=== PATIENT | female | born 1960 | race African-American/Black ===

== ENCOUNTER 2016-08-22 11:30 | Inpatient (IN) | payer OTHER ==
[2016-08-22 13:03] VITALS: BMI 32.5
--- NOTE | 2016-08-22 15:43 | HP ---
CIWA Score - CIWA Score Nausea/Vomitin-No Nausea/No Vomiting Muscle Tremors: 4-Moderate,w/Arms Extend Anxiety: 4-Mod. Anxious/Guarded Agitation: 4-Moderately Restless Paroxysmal Sweats: 1-Minimal Palms Moist Orientation: 0-Oriented Tacttile Disturbances: 3-Moderate Itch/Numb/Burn Auditory Disturbances: 0-None Visual Disturbances: 0-None Headache: 2-Mild CIWA-Ar Total Score: 18 Admission ROS BHS - HPI Chief Complaint: DETOX TX FOR ALCOHOL DEPENDENCE Allergies/Adverse Reactions: Allergies Allergy/AdvReac Type Severity Reaction Status Date / Time diphenhydramine AdvReac Severe Itching Verified 08/22/16 14:38 diphenhydramine HCl AdvReac Severe Itching Verified 08/22/16 14:38 [[facility] History of Present Illness: 55 Y/O AA/FEMALE WITH A HX OF ALCOHOL, COCAINE AND VALIUM/KLONOPIN DEPENDENCE SEEKING DETOX TX Exam Limitations: No Limitations - Ebola screening Have you traveled outside of the country in the last 21 days: No Have you had contact with anyone from an Ebola affected area: No Have you been sick,other than usual withdrawal symptoms: No Do you have a fever: No - Review of Systems Constitutional: Chills, Night Sweats, Changes in sleep EENT: reports: Blurred Vision (WEARS GLASSES), Eye Pain (DRY EYES), Tearing ( DRY EYES), Nose Congestion, Dental Problems (MISSING TEETH) Respiratory: reports: Shortness of Breath (HX BRONCHITIS--ON ALBUTEROL), Wheezing Cardiac: reports: Lightheadedness GI: reports: Constipated, Nausea, Vomiting, Abdominal cramping : reports: No Symptoms Reported Musculoskeletal: reports: Back Pain, Muscle Pain Integumentary: reports: Dryness Neuro: reports: Headache, Numbness, Tingling, Tremors, Unsteady Gait, Dizziness Endocrine: reports: No Symptoms Reported Hematology: reports: Anemia Psychiatric: reports: Orientated x3, Anxious Other Systems: Reviewed and Negative Patient History - Patient Medical History Hx Anemia: No Hx Asthma: Yes (Pt is on MDI) Hx Chronic Obstructive Pulmonary Disease (COPD): No Hx Cancer: No Hx Cardiac Disorders: No Hx Congestive Heart Failure: No Hx Hypertension: No Hx Hypercholesterolemia: No Hx Pacemaker: No HX Cerebrovascular Accident: No Hx Seizures: Yes (IN THE PAST, LAST WAS 3 YRS AGO ) Hx Dementia: No Hx Diabetes: No Hx Gastrointestinal Disorders: Yes (GERD) Hx Liver Disease: No Hx Genitourinary Disorders: No Hx Sexually Transmitted Disorders: No Hx Renal Disease (ESRD): No Hx Thyroid Disease: No Hx Human Immunodeficiency Virus (HIV): No (NEGATVE last 04/25) Hx Hepatitis C: Yes (20 years ago; TREATMENT PENDING.) Hx Depression: Yes (ON MEDS) Hx Suicide Attempt: No Hx Bipolar Disorder: Yes (SEROQUEL AND ABILIFY nn compliance) Hx Schizophrenia: No - Patient Surgical History Past Surgical History: Yes Hx Neurologic Surgery: No Hx Cataract Extraction: No Hx Cardiac Surgery: No Hx Lung Surgery: No Hx Breast Surgery: No Hx Breast Biopsy: No Hx Abdominal Surgery: No Hx Appendectomy: No Hx Cholecystectomy: No Hx Genitourinary Surgery: No Hx Section: No Hx Orthopedic Surgery: No Hx Hysterectomy: No Other Surgical History: UMBILICAL HERNIA REPAIR at childhood Anesthesia Reaction: No - PPD History Previous Implant?: Yes Documented Results: Negative w/o proof Implanted On Prior [facility] Admission?: Yes Date: 08/25/15 Results: 0 mm PPD to be Administered?: Yes - Reproductive History Patient is a Female of Child Bearing Age (11 -55 yrs old): Yes Last Menstrual Period: 06/22/16 Patient : No - Smoking Cessation Smoking history: Current some day smoker Have you smoked in the past 12 months: Yes Aproximately how many cigarettes per day: 30 (NOT CURRENTLY;USES PATCH) Cigars Per Day: 2 (NOT CURRENTLY;USES PATCH) Hx Chewing Tobacco Use: No Initiated information on smoking cessation: Yes 'Breaking Loose' booklet given: 08/22/16 - Substance & Tx. History Hx Alcohol Use: Yes (VODKA/BEER) Hx Substance Use: Yes (COCAINE) Substance Use Type: Alcohol, Cocaine Hx Substance Use Treatment: Yes (DETOX) - Substances Abused Alcohol Route: Oral Frequency: Daily Amount used: 1 PINT VODKA Age of first use: 15 Date of Last Use: 08/21/16 Cocaine Route: Inhalation Frequency: Daily Amount used: $50-60 Age of first use: 22 Date of Last Use: 08/20/16 Family Disease History - Family Disease History Family Disease History: Heart Disease: Father (ALCOHOL), Other: Father, Brother (ALCOHOL/DRUG), Sister (ALCOHOL/DRUG) Admission Physical Exam [facility] - Vital Signs Vital Signs: Vital Signs - 24 hr 08/22/16 12:58 Temperature 97 F L Pulse Rate 65 Respiratory 20 Rate Blood Pressure 149/95 - Physical General Appearance: Yes: Moderate Distress, Irritable, Anxious HEENTM: Yes: EOMI, Normocephalic, ALLAN, Pharynx Normal Respiratory: Yes: Chest Non-Tender, Lungs Clear, Normal Breath Sounds, No Respiratory Distress Neck: Yes: Supple, Trachea in good position Breast: Yes: Breast Exam Deferred Cardiology: Yes: Regular Rhythm, Regular Rate, S1, S2 Abdominal: Yes: Normal Bowel Sounds, Non Tender, Soft Genitourinary: Yes: Other (N/C) Back: Yes: Within Normal Limits Musculoskeletal: Yes: full range of Motion, Gait Steady Extremities: Yes: Normal Range of Motion, Non-Tender Neurological: Yes: devops architect II-XII NML intact, Fully Oriented, Alert Integumentary: Yes: Dry, Warm Lymphatic: Yes: Within Normal Limits - Diagnostic (1) Alcohol dependence with uncomplicated withdrawal Current Visit: Yes Status: Acute (2) Alcohol related seizure Current Visit: Yes Status: Suspected (3) Asthma Current Visit: Yes Status: Chronic Qualifiers: Asthma severity: mild intermittent Asthma complication type: uncomplicated Qualified Code(s): J45.20 - Mild intermittent asthma, uncomplicated (4) Constipation Current Visit: Yes Status: Chronic Qualifiers: Constipation type: unspecified constipation type Qualified Code(s): K59.00 - Constipation, unspecified (5) GERD (gastroesophageal reflux disease) Current Visit: Yes Status: Chronic Qualifiers: Esophagitis presence: without esophagitis Qualified Code(s): K21.9 - Gastro-esophageal reflux disease without esophagitis (6) Hepatitis C carrier Current Visit: Yes Status: Chronic Cleared for Admission S - Detox or Rehab [facility] Level of Care: Medically Managed Detox Regimen/Protocol: Librium [facility] Breath Alcohol Content Breath Alcohol Content: 0 Urine Pregancy Test - Result Urine Test Results: Negative- NO Line Present Urine Drug Screen - Results Drug Screen Negative: No Urine Drug Screen Results: MARY-Cocaine
[2016-08-22] MEDS ORDERED: ALBUTEROL SO4 6.7 GM HFA INHALER IH PRN (15:44)
[2016-08-22] MEDS ORDERED: MAGNESIUM HYDROX 2400MG/30ML ORAL SUSPENSION 30 ML CUP PO PRN (16:07)
[2016-08-22] MEDS ORDERED: chlordiazePOXIDE HCL 25 MG CAPSULE PO PRN (16:07)
[2016-08-22] MEDS ORDERED: MAGNESIUM CITRATE 300 ML BOTTLE PO PRN (16:07)
[2016-08-22] MEDS ORDERED: NICOTINE POLACRILEX 2 MG GUM BC PRN (16:07)
[2016-08-22] MEDS ORDERED: LOPERAMIDE HCL 2 MG CAPSULE PO PRN (16:07)
[2016-08-22] MEDS ORDERED: chlordiazePOXIDE HCL 25 MG CAPSULE PO ONE (17:30)
[2016-08-22] MEDS: chlordiazePOXIDE HCL 25 MG CAPSULE PO SCH ×2 (17:48→22:28)
[2016-08-22 22:11] LABS: URINE APPEARANCE CLEAR; URINE BILIRUBIN NEGATIVE (NEGATIVE); URINE BLOOD NEGATIVE (NEGATIVE); URINE COLOR LT. YELLOW; URINE GLUCOSE (UA) NEGATIVE (NEGATIVE); URINE KETONE NEGATIVE (NEGATIVE); URINE LEUK ESTERASE NEGATIVE (NEGATIVE); URINE NITRITE NEGATIVE (NEGATIVE); URINE PROTEIN NEGATIVE (NEGATIVE); URINE UROBILINOGEN 0.2 E.U/dl E.U./dl (0.2-1.0)
[2016-08-22] MEDS: THIAMINE HCL 100 MG TABLET (FP) PO SCH (22:28)
[2016-08-22] MEDS: ACETAMINOPHEN 325 MG TABLET (FP) PO PRN (22:51)
[2016-08-22] MEDS: MAG HYDROX/AL HYDROX/SIMETH 30 ML UNIT-DOSE CUP PO PRN (22:51)
[2016-08-22] MEDS: P-EPHED 60MG/TRIPROLIDI 2.5MG TABLET PO PRN (22:51)
[2016-08-22] MEDS: NICOTINE 14 MG/24 HOURS TOPICAL PATCH TD SCH (22:54)
[2016-08-23] MEDS: chlordiazePOXIDE HCL 25 MG CAPSULE PO SCH ×4 (05:45→22:44)
[2016-08-23] MEDS: MAG HYDROX/AL HYDROX/SIMETH 30 ML UNIT-DOSE CUP PO PRN (05:46)
[2016-08-23] MEDS: ACETAMINOPHEN 325 MG TABLET (FP) PO PRN ×2 (05:46→12:38)
[2016-08-23] MEDS: P-EPHED 60MG/TRIPROLIDI 2.5MG TABLET PO PRN ×2 (08:53→22:46)
[2016-08-23] MEDS: IBUPROFEN 400 MG TABLET (FP) PO PRN (08:54)
--- NOTE | 2016-08-23 10:05 | PN ---
S CIWA - CIWA Score Nausea/Vomitin-Mild Nausea/No Vomiting Muscle Tremors: 4-Moderate,w/Arms Extend Anxiety: 4-Mod. Anxious/Guarded Agitation: 4-Moderately Restless Paroxysmal Sweats: 3 Orientation: 0-Oriented Tacttile Disturbances: 0-None Auditory Disturbances: 0-None Visual Disturbances: 0-None Headache: 1-Very Mild CIWA-Ar Total Score: 17 BHS Progress Note (SOAP) Subjective: little nausea headaches sweats anxiety acid reflux Objective: 08/23/16 10:03 Vital Signs Temperature 97.2 F L 08/23/16 09:54 Pulse Rate 62 08/23/16 09:54 Respiratory Rate 18 08/23/16 09:54 Blood Pressure 136/77 08/23/16 09:54 O2 Sat by Pulse Oximetry (%) Laboratory Tests 08/22/16 21:30 Urine Color Lt. yellow Urine Appearance Clear Urine pH 6.0 Urine Protein Negative Urine Glucose (UA) Negative Urine Ketones Negative Urine Blood Negative Urine Nitrite Negative Urine Bilirubin Negative Urine Urobilinogen 0.2 e.u/dl Ur Leukocyte Esterase Negative labs pending awake/alert ambulating no acute distress Assessment: 08/23/16 10:04 withdrawal sx Plan: continue detox increase fluids labs pending protonix 40mg
[2016-08-23] MEDS: PANTOPRAZOLE 40 MG TABLET (FP) PO SCH (10:21)
[2016-08-23] MEDS: PRENATAL VITAMINS W/ FOLIC ACID TABLET (FP) PO SCH (10:21)
[2016-08-23] MEDS: NICOTINE 14 MG/24 HOURS TOPICAL PATCH TD SCH (10:22)
[2016-08-23 10:34] LABS: MCH 23.9 pg (25.7-33.7); MCHC 31.5 g/dl (32.0-36.0); MEAN PLT VOLUME 9.4 fl (7.5-11.1); PLATELET COUNT 280 K/MM3 (134-434); RDW 16.2 % (11.6-15.6)
[2016-08-23 11:10] LABS: ALBUMIN 4.1 g/dl (3.4-5.0); ALK PHOS 100 U/L (45-117); ANION GAP 10 (8-16); BILIRUBIN,TOTAL 0.5 mg/dL (0.2-1.0); CALCIUM 9.5 mg/dL (8.5-10.1); CO2 28 mmol/L (21-32); CREATININE 0.7 mg/dL (0.55-1.02); GLUCOSE,RANDOM 85 mg/dL (74-106); SGOT/AST 32 U/L (15-37); SGPT/ALT 43 U/L (12-78); TOT PROT 8.1 g/dl (6.4-8.2)
[2016-08-23 12:38] LABS: HIV 1 & 2 AB NEGATIVE; HIV 1 AGp24 NEGATIVE
[2016-08-23] MEDS: guaiFENesin/D-METHORPHAN HB 10 ML UNIT-DOSE CUPS PO PRN (15:55)
[2016-08-23] MEDS: MENTHOL/PHENOL 1 EACH UD MM PRN (15:55)
--- NOTE | 2016-08-23 17:05 | CONSULT ---
[facility] Psychiatric Consult - Data Date of interview: 08/23/16 Admission source: [facility] Identifying data: Another admission to [facility] for this 55 y/o AA female seeking detox treatment for alcohol,cocaine and benzodiazepine dependence.Patient is single,a mother of three,domiciled,unemployed and supported on SSI benefits. Substance Abuse History: - Smoking Cessation. Smoking history: Current some day smoker. Have you smoked in the past 12 months: Yes. Aproximately how many cigarettes per day: 30 (NOT CURRENTLY;USES PATCH). Cigars Per Day: 2 (NOT CURRENTLY;USES PATCH). Hx Chewing Tobacco Use: No. Initiated information on smoking cessation: Yes. 'Breaking Loose' booklet given: 08/22/16. - Substance & Tx. History. Hx Alcohol Use: Yes (VODKA/BEER). Hx Substance Use: Yes ( COCAINE). Substance Use Type: Alcohol, Cocaine. Hx Substance Use Treatment: Yes (DETOX). - Substances Abused. Alcohol. Route: Oral. Frequency: Daily. Amount used: 1 PINT VODKA. Age of first use: 15. Date of Last Use: . Cocaine. Route: Inhalation. Frequency: Daily. Amount used: $50- 60. Age of first use: 22. Date of Last Use: 08/20/16. Confirmed by patient. Medical History: hepatitis C,bronchial asthma,withdrawal-related seizures,GERD and a remote history of inguinal herniorraphy. Psychiatric History: Diagnosed with Bipolar Disorder 15 years ago.No reported psychiatric hospitalizations.Patient still gets her psychiatric OPD care at [facility] where she sees Dr Agarwal,on a monthly basis,for medication management.Prescribed trazodone,seroquel and clonazepam (doses are not recalled).Patient indicates her wish to abstain from seroquel (intolerable side effects : oversedation) and she is wiiling to " be on the lowest possible dose of trazodone ".No reported history of suicide attempts. Physical/Sexual Abuse/Trauma History: Patient denies. Additional Comment: Urine Drug Screen Results: MARY-Cocaine.Noted. Mental Status Exam - Mental Status Exam Alert and Oriented to: Time, Place, Person Cognitive Function: Good Patient Appearance: Well Groomed (overweight) Mood: Hopeful, Euthymic Affect: Appropriate, Normal Range Patient Behavior: Appropriate, Cooperative Speech Pattern: Clear, Appropriate Voice Loudness: Normal Thought Process: Intact, Goal Oriented Thought Disorder: Not Present Hallucinations: Denies Suicidal Ideation: Denies Homicidal Ideation: Denies Insight/Judgement: Fair Sleep: Poorly, Difficulty falling asleep Appetite: Good Muscle strength/Tone: Normal Gait/Station: Normal Psychiatric Findings - Problem List ([place] 1, 2,3) (1) Alcohol dependence with uncomplicated withdrawal Current Visit: Yes Status: Acute (2) Cocaine dependence Current Visit: Yes Status: Active (3) Drug-induced mood disorder Current Visit: Yes Status: Acute (4) Bipolar disorder Current Visit: Yes Status: Chronic (5) Asthma Current Visit: Yes Status: Chronic Qualifiers: Asthma severity: mild intermittent Asthma complication type: uncomplicated Qualified Code(s): J45.20 - Mild intermittent asthma, uncomplicated (6) GERD (gastroesophageal reflux disease) Current Visit: Yes Status: Chronic Qualifiers: Esophagitis presence: without esophagitis Qualified Code(s): K21.9 - Gastro-esophageal reflux disease without esophagitis (7) Hepatitis C carrier Current Visit: Yes Status: Chronic (8) Drug withdrawal seizure Current Visit: No Status: Acute (9) Insomnia Current Visit: Yes Status: Acute - Initial Treatment Plan Initial Treatment Plan: Psychoeducation.Detoxification.Medication : trazodone 25 mg po hs.Side effects/benefits discussed with the patient.She is in agreement with this careplan.Observation.
--- NOTE | 2016-08-23 17:21 | EKG ---
Test Reason : Blood Pressure : / mmHG Vent. Rate : 063 BPM Atrial Rate : 063 BPM P-R Int : 148 ms QRS Dur : 074 ms QT Int : 400 ms P-R-T Axes : 052 072 063 degrees QTc Int : 409 ms NORMAL SINUS RHYTHM MINIMAL VOLTAGE CRITERIA FOR LVH, MAY BE NORMAL VARIANT BORDERLINE ECG NO PREVIOUS ECGS AVAILABLE Confirmed by SESAR CRUZ MD ([id number]) on 08/23/2016 5:21:01 PM Referred By: Confirmed By:SESAR CRUZ MD
[2016-08-23] MEDS: traZODone HCL 50 MG TABLET (FP) PO SCH (22:43)
[2016-08-23] MEDS: THIAMINE HCL 100 MG TABLET (FP) PO SCH (22:45)
[2016-08-24] MEDS: chlordiazePOXIDE HCL 25 MG CAPSULE PO SCH ×2 (05:59→10:35)
[2016-08-24] MEDS: P-EPHED 60MG/TRIPROLIDI 2.5MG TABLET PO PRN (06:01)
[2016-08-24] MEDS: ACETAMINOPHEN 325 MG TABLET (FP) PO PRN (09:54)
[2016-08-24] MEDS: PRENATAL VITAMINS W/ FOLIC ACID TABLET (FP) PO SCH (10:34)
[2016-08-24] MEDS: PANTOPRAZOLE 40 MG TABLET (FP) PO SCH (10:35)
[2016-08-24] MEDS: NICOTINE 14 MG/24 HOURS TOPICAL PATCH TD SCH (10:35)
[2016-08-24] MEDS: guaiFENesin/D-METHORPHAN HB 10 ML UNIT-DOSE CUPS PO PRN (10:38)
[2016-08-24] MEDS: MENTHOL/PHENOL 1 EACH UD MM PRN (10:38)
--- NOTE | 2016-08-24 11:58 | PN ---
S CIWA - CIWA Score Nausea/Vomitin Muscle Tremors: 2 Anxiety: 3 Agitation: 3 Paroxysmal Sweats: 3 Orientation: 0-Oriented Tacttile Disturbances: 2-Mild Itch/Numbness/Burn Auditory Disturbances: 0-None Visual Disturbances: 0-None Headache: 0-None Present CIWA-Ar Total Score: 15 BHS Progress Note (SOAP) Subjective: sweats, constipation Objective: 08/24/16 11:56 Vital Signs Temperature 97.7 F 08/24/16 10:00 Pulse Rate 78 08/24/16 10:00 Respiratory Rate 18 08/24/16 10:00 Blood Pressure 140/80 08/24/16 10:00 O2 Sat by Pulse Oximetry (%) Laboratory Tests 08/22/16 08/22/16 08/23/16 14:00 21:30 06:00 WBC 6.0 RBC 5.83 H Hgb 13.9 D Hct 44.3 MCV 76.0 L MCHC 31.5 L RDW 16.2 H Plt Count 280 MPV 9.4 D Sodium Potassium Chloride Carbon Dioxide Anion Gap BUN Creatinine Creat Clearance w eGFR Random Glucose Calcium Total Bilirubin AST ALT Alkaline Phosphatase Total Protein Albumin Urine Color Lt. yellow Urine Appearance Clear Urine pH 6.0 Ur Specific [place] 1.010 Urine Protein Negative Urine Glucose (UA) Negative Urine Ketones Negative Urine Blood Negative Urine Nitrite Negative Urine Bilirubin Negative Urine Urobilinogen 0.2 e.u/dl Ur Leukocyte Esterase Negative RPR Titer HIV 1&2 Antibody Screen Negative HIV P24 Antigen Negative 08/23/16 08/23/16 06:00 06:00 WBC RBC Hgb Hct MCV MCHC RDW Plt Count MPV Sodium 141 Potassium 4.2 Chloride 103 Carbon Dioxide 28 Anion Gap 10 BUN 9 Creatinine 0.7 Creat Clearance w eGFR > 60 Random Glucose 85 D Calcium 9.5 Total Bilirubin 0.5 D AST 32 ALT 43 Alkaline Phosphatase 100 Total Protein 8.1 Albumin 4.1 Urine Color Urine Appearance Urine pH Ur Specific [place] Urine Protein Urine Glucose (UA) Urine Ketones Urine Blood Urine Nitrite Urine Bilirubin Urine Urobilinogen Ur Leukocyte Esterase RPR Titer Nonreactive HIV 1&2 Antibody Screen HIV P24 Antigen pt aox3 in nad ambulating Assessment: 08/24/16 11:57 withdrawal sx's 08/24/16 11:57 constipation Plan: cont, detox increase fluids mom
[2016-08-24] MEDS: IBUPROFEN 400 MG TABLET (FP) PO PRN (13:55)
[2016-08-24] MEDS: MAG HYDROX/AL HYDROX/SIMETH 30 ML UNIT-DOSE CUP PO PRN (15:09)
[2016-08-24] MEDS: chlordiazePOXIDE 5 MG CAPSULE PO SCH ×2 (17:32→22:45)
[2016-08-24] MEDS: traZODone HCL 50 MG TABLET (FP) PO SCH (22:45)
[2016-08-24] MEDS: THIAMINE HCL 100 MG TABLET (FP) PO SCH (22:45)
[2016-08-25] MEDS: chlordiazePOXIDE 5 MG CAPSULE PO SCH ×2 (06:17→11:14)
[2016-08-25] MEDS: PRENATAL VITAMINS W/ FOLIC ACID TABLET (FP) PO SCH (11:14)
[2016-08-25] MEDS: PANTOPRAZOLE 40 MG TABLET (FP) PO SCH (11:14)
[2016-08-25] MEDS: NICOTINE 14 MG/24 HOURS TOPICAL PATCH TD SCH (11:15)
--- NOTE | 2016-08-25 11:17 | PN ---
BHS Progress Note (SOAP) Subjective: sweats Objective: 08/25/16 11:16 Vital Signs Temperature 97.9 F 08/25/16 09:40 Pulse Rate 93 H 08/25/16 09:40 Respiratory Rate 18 08/25/16 09:40 Blood Pressure 111/73 08/25/16 09:40 O2 Sat by Pulse Oximetry (%) awake/alert ambulating no acute distress Assessment: 08/25/16 11:16 withdrawal sx Plan: continue detox increase fluids d/c in am
[2016-08-25] MEDS: guaiFENesin/D-METHORPHAN HB 10 ML UNIT-DOSE CUPS PO PRN ×2 (11:18→19:40)
[2016-08-25] MEDS: MENTHOL/PHENOL 1 EACH UD MM PRN (11:19)
[2016-08-25] MEDS: chlordiazePOXIDE HCL 10 MG CAPSULE PO SCH ×2 (17:14→22:31)
[2016-08-25] MEDS: ACETAMINOPHEN 325 MG TABLET (FP) PO PRN (17:15)
[2016-08-25] MEDS: IBUPROFEN 400 MG TABLET (FP) PO PRN (19:40)
[2016-08-25] MEDS: traZODone HCL 50 MG TABLET (FP) PO SCH (22:31)
[2016-08-25] MEDS: THIAMINE HCL 100 MG TABLET (FP) PO SCH (22:31)
[2016-08-26] MEDS: chlordiazePOXIDE HCL 10 MG CAPSULE PO SCH (06:04)
[2016-08-26 06:58] VITALS: BP 130/85; PULSE 62; TEMP 95.9
--- NOTE | 2016-08-26 09:15 | DS ---
[facility] Detox Discharge Summary Admission Date: 08/22/16 Discharge Date: 08/26/16 - History Present History: Alcohol Dependence, Cannabis Dependence, Sedative Dependence - Physical Exam Results Vital Signs: Vital Signs Temperature 95.9 F L 08/26/16 06:00 Pulse Rate 62 08/26/16 06:00 Respiratory Rate 18 08/26/16 06:00 Blood Pressure 130/85 08/26/16 06:00 O2 Sat by Pulse Oximetry (%) - Treatment Hospital Course: Detox Protocol Followed, Detoxed Safely, Responded well, Discharged Condition Good, Rehab Referral Accepted - Medication Discharge Medications: Ambulatory Orders Trazodone HCl [Desyrel -] 50 mg PO HS #30 tablet 05/29/14 Albuterol Sulfate Inhaler - [Ventolin Hfa Inhaler -] 2 inh PO Q4H PRN 08/23/15 Lansoprazole [Prevacid -] 30 mg PO DAILY 08/22/16 Quetiapine Fumarate [Seroquel -] 50 mg PO HS 08/22/16 - Diagnosis (1) Cocaine dependence Current Visit: Yes Status: Chronic (2) Alcohol dependence with uncomplicated withdrawal Current Visit: Yes Status: Chronic (3) Drug-induced mood disorder Current Visit: Yes Status: Acute (4) Insomnia Current Visit: Yes Status: Acute (5) Asthma Current Visit: Yes Status: Chronic Qualifiers: Asthma severity: mild intermittent Asthma complication type: uncomplicated Qualified Code(s): J45.20 - Mild intermittent asthma, uncomplicated (6) Bipolar disorder Current Visit: Yes Status: Chronic (7) Constipation Current Visit: Yes Status: Chronic Qualifiers: Constipation type: unspecified constipation type Qualified Code(s): K59.00 - Constipation, unspecified (8) GERD (gastroesophageal reflux disease) Current Visit: Yes Status: Chronic Qualifiers: Esophagitis presence: without esophagitis Qualified Code(s): K21.9 - Gastro-esophageal reflux disease without esophagitis (9) Hepatitis C carrier Current Visit: Yes Status: Chronic (10) Alcohol related seizure Current Visit: Yes Status: Suspected (11) Cannabis dependence Current Visit: No Status: Active (12) Sedative dependence Current Visit: No Status: Active (13) Syncope Current Visit: No Status: Active (14) Weight decreased Current Visit: No Status: Active (15) Drug withdrawal seizure Current Visit: No Status: Acute - AMA Did Patient Leave Against Medical Advice: No
[2016-08-26] MEDS: PRENATAL VITAMINS W/ FOLIC ACID TABLET (FP) PO SCH (09:26)
[2016-08-26] MEDS: PANTOPRAZOLE 40 MG TABLET (FP) PO SCH (09:26)
== END 2016-08-26 09:35 | disposition home or self-care (01) | DRG 774 ==
LOC: YASAS 11:30 → Y6N 15:19
PROVIDERS: ADMIT Internal Medicine Addiction Medicine; ATTEND Internal Medicine Addiction Medicine
PROC: HZ2ZZZZ Detoxification Services for Substance Abuse Treatment (ICD-10-PCS; principal; 2016-08-26)
DX: F10.230 Alcohol dependence with withdrawal, uncomplicated (principal); F13.20 Sedative, hypnotic or anxiolytic dependence, uncomplicated; F14.20 Cocaine dependence, uncomplicated; F12.20 Cannabis dependence, uncomplicated; F19.24 Other psychoactive substance dependence with psychoactive substance-induced mood disorder; G47.00 Insomnia, unspecified; G40.509 Epileptic seizures related to external causes, not intractable, without status epilepticus; F31.9 Bipolar disorder, unspecified; K21.9 Gastro-esophageal reflux disease without esophagitis; K59.00 Constipation, unspecified; J45.20 Mild intermittent asthma, uncomplicated; R55 Syncope and collapse; B18.2 Chronic viral hepatitis C; E66.09 Other obesity due to excess calories; Z68.32 Body mass index [BMI] 32.0-32.9, adult
CPT/HCPCS: 36415; 80053; 81003; 85027; 86593; 87389; 93005; 93010

== ENCOUNTER 2017-03-11 12:33 | Inpatient (IN) | payer OTHER ==
[2017-03-11 13:00] VITALS: BMI 35.3
--- NOTE | 2017-03-11 13:15 | HP ---
CIWA Score - CIWA Score Nausea/Vomitin-Mild Nausea/No Vomiting Muscle Tremors: 4-Moderate,w/Arms Extend Anxiety: 4-Mod. Anxious/Guarded Agitation: 1-Slight > Activity Paroxysmal Sweats: 1-Minimal Palms Moist Orientation: 1-Uncertain about Date Tacttile Disturbances: 1-Very Mild Itch/Numbness Auditory Disturbances: 1-Very Mild Visual Disturbances: 1-Very Mild Sensitivity Headache: 1-Very Mild CIWA-Ar Total Score: 16 Admission ROS BHS - HPI Chief Complaint: I need help to stop, I need help bad Allergies/Adverse Reactions: Allergies Allergy/AdvReac Type Severity Reaction Status Date / Time No Known Drug Allergies Allergy Verified 08/23/16 17:22 diphenhydramine AdvReac Severe Itching Verified 08/22/16 14:38 diphenhydramine HCl AdvReac Severe Itching Verified 08/22/16 14:38 [From [facility]] History of Present Illness: 56 yo woman here for detox from alcohol, also using cocaine and marijuana. Last here for detox in Aug, 2016. Also previously in rehab but cannot remember when. Does have a history of seizures, also black outs. Exam Limitations: Clinical Condition - Ebola screening Have you traveled outside of the country in the last 21 days: No (N) Have you had contact with anyone from an Ebola affected area: No Have you been sick,other than usual withdrawal symptoms: No Do you have a fever: No - Review of Systems Constitutional: Loss of Appetite, Malaise, Night Sweats, Changes in sleep, Weakness EENT: reports: Blurred Vision, Nose Congestion Respiratory: reports: No Symptoms reported Cardiac: reports: No Symptoms Reported GI: reports: Poor Appetite, Indigestion : reports: Burning Musculoskeletal: reports: Back Pain, Muscle Pain Integumentary: reports: No Symptoms Reported Neuro: reports: Headache Endocrine: reports: No Symptoms Reported Hematology: reports: No Symptoms Reported Psychiatric: reports: Judgement Intact, Mood/Affect Appropiate, Anxious Other Systems: Reviewed and Negative Patient History - Patient Medical History Hx Anemia: No Hx Asthma: Yes (Pt is on MDI) Hx Chronic Obstructive Pulmonary Disease (COPD): No Hx Cancer: No Hx Cardiac Disorders: No Hx Congestive Heart Failure: No Hx Hypertension: No Hx Hypercholesterolemia: No Hx Pacemaker: No HX Cerebrovascular Accident: No Hx Seizures: Yes (IN THE PAST, LAST 2014 (? - she is not sure)) Hx Dementia: No Hx Diabetes: No Hx Gastrointestinal Disorders: Yes (GERD) Hx Liver Disease: No Hx Genitourinary Disorders: No Hx Sexually Transmitted Disorders: No Hx Renal Disease (ESRD): No Hx Thyroid Disease: No Hx Human Immunodeficiency Virus (HIV): No (NEGATVE last 04/25) Hx Hepatitis C: Yes (just completed treated with three pills) Hx Depression: Yes Hx Suicide Attempt: No Hx Bipolar Disorder: Yes (on meds, history of hospitalizations at [place] ) Hx Schizophrenia: No - Patient Surgical History Past Surgical History: Yes Hx Neurologic Surgery: No Hx Cataract Extraction: No Hx Cardiac Surgery: No Hx Lung Surgery: No Hx Breast Surgery: No Hx Breast Biopsy: No Hx Abdominal Surgery: No Hx Appendectomy: No Hx Cholecystectomy: No Hx Genitourinary Surgery: No Hx Section: No Hx Orthopedic Surgery: No Hx Hysterectomy: No Other Surgical History: UMBILICAL HERNIA REPAIR at childhood Anesthesia Reaction: No - PPD History Previous Implant?: Yes Documented Results: Negative w/proof Date: 08/24/16 Results: 0 mm PPD to be Administered?: No - Reproductive History Patient is a Female of Child Bearing Age (11 -55 yrs old): Yes Last Menstrual Period: 06/22/16 - Smoking Cessation Smoking history: Former smoker Have you smoked in the past 12 months: No If you are a former smoker, when did you quit?: 10 years Cigars Per Day: 2 Hx Chewing Tobacco Use: No Initiated information on smoking cessation: Yes 'Breaking Loose' booklet given: 03/11/17 (give on floor) - Substance & Tx. History Hx Alcohol Use: Yes Hx Substance Use: Yes Substance Use Type: Alcohol, Cocaine, Marijuana Hx Substance Use Treatment: Yes (detox, rehab) - Substances Abused alcohol Route: Oral Frequency: 3-6 times per week Amount used: 1/2 gallon liquor (gin, vodka) Age of first use: 14 Date of Last Use: 03/09/17 Marijuana/Hashish Route: Smoking Frequency: 3-6 times per week Amount used: 2 joints Age of first use: 14 Date of Last Use: 03/10/17 Cocaine Route: Smoking Frequency: Daily Amount used: $80 Age of first use: 22 Date of Last Use: 03/11/17 Family Disease History - Family Disease History Family Disease History: Heart Disease: Father (,ALCOHOL), Mother (htn, ), Other: Father, Mother, Brother (five, healthy), Sister (seven - two use ALCOHOL/DRUG), Son (2 - healthy), Daughter (1 - healthy) Admission Physical Exam [facility] - Vital Signs Vital Signs: Vital Signs - 24 hr 03/11/17 12:55 Temperature 97 F L Pulse Rate 89 Respiratory 20 Rate Blood Pressure 102/60 - Physical General Appearance: Yes: Nourished, Appropriately Dressed, Mild Distress, Anxious HEENTM: Yes: Hearing grossly Normal, Normal ENT Inspection, Normocephalic, Normal Voice, Nasal Congestion Respiratory: Yes: Normal Breath Sounds, No Respiratory Distress Neck: Yes: No masses,lesions,Nodules, Supple Breast: Yes: Breast Exam Deferred Cardiology: Yes: Regular Rhythm, Regular Rate Abdominal: Yes: Soft Genitourinary: Yes: Frequency Back: Yes: Normal Inspection Musculoskeletal: Yes: full range of Motion, Gait Steady Extremities: Yes: Normal Inspection, Non-Tender Neurological: Yes: Alert, Normal Mood/Affect, Normal Response Integumentary: Yes: Normal Color, Warm Lymphatic: Yes: Within Normal Limits - Diagnostic (1) Alcohol dependence with uncomplicated withdrawal Current Visit: Yes Status: Chronic (2) Cannabis dependence Current Visit: Yes Status: Active (3) Syncope Current Visit: Yes Status: Active (4) Drug withdrawal seizure Current Visit: Yes Status: Acute Qualifiers: Complication of substance-induced condition: uncomplicated Qualified Code(s ): F19.230 - Other psychoactive substance dependence with withdrawal, uncomplicated (5) Cocaine dependence Current Visit: Yes Status: Chronic (6) Asthma Current Visit: Yes Status: Chronic Qualifiers: Asthma severity: mild Asthma persistence: intermittent Asthma complication type: uncomplicated Qualified Code(s): J45.20 - Mild intermittent asthma, uncomplicated Cleared for Admission S - Detox or Rehab [facility] Level of Care: Medically Managed Detox Regimen/Protocol: Librium [facility] Breath Alcohol Content Breath Alcohol Content: 0 Urine Pregancy Test - Result Urine Test Results: Negative- NO Line Present Urine Drug Screen - Results Drug Screen Negative: No Urine Drug Screen Results: THC-Marijuana, MARY-Cocaine
[2017-03-11] MEDS ORDERED: MENTHOL/PHENOL 1 EACH UD MM PRN (13:28)
[2017-03-11] MEDS ORDERED: guaiFENesin/D-METHORPHAN HB 10 ML UNIT-DOSE CUPS PO PRN (13:28)
[2017-03-11] MEDS ORDERED: LOPERAMIDE HCL 2 MG CAPSULE PO PRN (13:28)
[2017-03-11] MEDS ORDERED: MAGNESIUM CITRATE 300 ML BOTTLE PO PRN (13:28)
[2017-03-11] MEDS ORDERED: IBUPROFEN 400 MG TABLET (FP) PO PRN (13:28)
[2017-03-11] MEDS ORDERED: MAGNESIUM HYDROX 2400MG/30ML ORAL SUSPENSION 30 ML CUP PO PRN (13:28)
[2017-03-11] MEDS ORDERED: chlordiazePOXIDE HCL 25 MG CAPSULE PO PRN (13:28)
[2017-03-11] MEDS ORDERED: chlordiazePOXIDE HCL 25 MG CAPSULE PO ONE (13:28)
[2017-03-11] MEDS ORDERED: MAG HYDROX/AL HYDROX/SIMETH 30 ML UNIT-DOSE CUP PO PRN (13:28)
[2017-03-11] MEDS ORDERED: ACETAMINOPHEN 325 MG TABLET (FP) PO PRN (13:28)
[2017-03-11] MEDS ORDERED: NICOTINE POLACRILEX 4 MG GUM BUC PRN (13:28)
[2017-03-11] MEDS: chlordiazePOXIDE HCL 25 MG CAPSULE PO SCH ×2 (16:42→22:38)
[2017-03-11] MEDS: NICOTINE 14 MG/24 HOURS TOPICAL PATCH TD SCH (16:43)
[2017-03-11] MEDS: THIAMINE HCL 100 MG TABLET (FP) PO SCH (22:38)
[2017-03-11 23:51] LABS: URINE APPEARANCE CLEAR; URINE BILIRUBIN 1+ (NEGATIVE); URINE BLOOD NEGATIVE (NEGATIVE); URINE COLOR LT. YELLOW; URINE GLUCOSE (UA) NEGATIVE (NEGATIVE); URINE KETONE NEGATIVE (NEGATIVE); URINE NITRITE NEGATIVE (NEGATIVE); URINE PROTEIN NEGATIVE (NEGATIVE); URINE UROBILINOGEN 0.2 mg/dL (0.2-1.0)
[2017-03-12] MEDS: chlordiazePOXIDE HCL 25 MG CAPSULE PO SCH ×4 (05:45→22:32)
--- NOTE | 2017-03-12 08:04 | CONSULT ---
[facility] Psychiatric Consult - Data Date of interview: 03/12/17 Admission source: Self-referred Identifying data: Ms Sadler is a 56 years old single Black female, mother of 3 children, unemployed on public assistance, domiciled Substance Abuse History: Reports history of alcohol, cocaine and marijuana use. Refer to addiction counselor's note for further information Medical History: Significant for treatment for hepatitis C, bronchial asthma, withdrawal-related seizures, GERD and a remote history of umbilical herniorraphy as a child. Psychiatric History: Reports being diagnosed with Bipolar Disorder more than 15 years ago and has had one previous psychiatric admission for depression to [facility].[address] Agarwal, a private psychiatrist in the [place] and she is prescribed Seroquel 100 mg po HS and Trazadone 50 mg po HS. Claims that Dr Agarwal told her to take Seroquel when she feels like she needs it. However told lead technical writer she does not want to take it now to avoid oversedation. Denies history of suicidal attempt. Reports doing well at present Physical/Sexual Abuse/Trauma History: Denies history of verbal,physical or sexual abuse as well as DV relationship Additional Comment: Reports history of previous felony convictions more than 20 years ago Mental Status Exam - Mental Status Exam Alert and Oriented to: Time, Place, Person Cognitive Function: Fair Patient Appearance: Well Groomed Mood: Hopeful, Euthymic Patient Behavior: Cooperative Speech Pattern: Clear Voice Loudness: Normal Thought Process: Intact, Goal Oriented Thought Disorder: Not Present Hallucinations: Denies Suicidal Ideation: Denies Homicidal Ideation: Denies Insight/Judgement: Poor Sleep: Poorly Appetite: Good Muscle strength/Tone: Normal Gait/Station: Normal Psychiatric Findings - Problem List ([place] 1, 2,3) (1) Bipolar disorder Current Visit: No Status: Chronic (2) Alcohol dependence with uncomplicated withdrawal Current Visit: Yes Status: Acute (3) Cocaine dependence Current Visit: Yes Status: Acute (4) Cannabis dependence Current Visit: Yes Status: Active (5) Asthma Current Visit: Yes Status: Chronic Qualifiers: Asthma severity: mild Asthma persistence: intermittent Asthma complication type: uncomplicated Qualified Code(s): J45.20 - Mild intermittent asthma, uncomplicated (6) Drug withdrawal seizure Current Visit: Yes Status: Chronic Qualifiers: Complication of substance-induced condition: uncomplicated Qualified Code(s ): F19.230 - Other psychoactive substance dependence with withdrawal, uncomplicated - Initial Treatment Plan Initial Treatment Plan: 1) Continue Trazadone 50 mg po HS. 2) Continue inpatient detoxification
--- NOTE | 2017-03-12 09:56 | PN ---
S CIWA - CIWA Score Nausea/Vomitin-No Nausea/No Vomiting Muscle Tremors: 4-Moderate,w/Arms Extend Anxiety: 3 Agitation: 3 Paroxysmal Sweats: 1-Minimal Palms Moist Orientation: 0-Oriented Tacttile Disturbances: 0-None Auditory Disturbances: 0-None Visual Disturbances: 0-None Headache: 1-Very Mild CIWA-Ar Total Score: 12 BHS Progress Note (SOAP) Subjective: tremor anxiety agitation headache sweat Objective: 03/12/17 09:56 Vital Signs Temperature 97.7 F 03/12/17 09:55 Pulse Rate 83 03/12/17 09:55 Respiratory Rate 18 03/12/17 09:55 Blood Pressure 132/77 03/12/17 09:55 O2 Sat by Pulse Oximetry (%) Laboratory Last Values Urine Color Lt. yellow 03/11/17 22:28 Urine Appearance Clear 03/11/17 22:28 Urine pH 6.0 (5.0-8.0) 03/11/17 22:28 Ur Specific [place] >= 1.030 (1.001-1.035) 03/11/17 22:28 Urine Protein Negative (NEGATIVE) 03/11/17 22:28 Urine Glucose (UA) Negative (NEGATIVE) 03/11/17 22:28 Urine Ketones Negative (NEGATIVE) 03/11/17 22:28 Urine Blood Negative (NEGATIVE) 03/11/17 22:28 Urine Nitrite Negative (NEGATIVE) 03/11/17 22:28 Urine Bilirubin 1+ (NEGATIVE) H 03/11/17 22:28 Urine Urobilinogen 0.2 mg/dL (0.2-1.0) 03/11/17 22:28 lab noted Assessment: 03/12/17 09:56 withdrawal sx Plan: continue detox
[2017-03-12] MEDS: PRENATAL VITAMINS W/ FOLIC ACID TABLET (FP) PO SCH (10:43)
[2017-03-12] MEDS: NICOTINE 14 MG/24 HOURS TOPICAL PATCH TD SCH (10:43)
[2017-03-12] MEDS: PANTOPRAZOLE 20 MG TABLET (FP) PO SCH (10:43)
[2017-03-12] MEDS ORDERED: ALBUTEROL SO4 18 GM HFA INHALER IH ONE (10:46)
[2017-03-12 11:41] LABS: MCH 23.9 pg (25.7-33.7); MCHC 31.2 g/dl (32.0-36.0); MEAN CELL VOLUME 76.8 fl (80-96); MEAN PLT VOLUME 8.5 fl (7.5-11.1); PLATELET COUNT 296 K/MM3 (134-434); RDW 16.2 % (11.6-15.6); WHITE BLOOD COUNT 6.3 K/mm3 (4.0-10.0)
[2017-03-12 12:00] LABS: ALBUMIN 3.3 g/dl (3.4-5.0); ANION GAP 6 (8-16); CALCIUM 8.9 mg/dL (8.5-10.1); CO2 32 mmol/L (21-32); CREATININE 0.7 mg/dL (0.55-1.02); GLUCOSE,RANDOM 78 mg/dL (74-106); SGOT/AST 12 U/L (15-37); SGPT/ALT 16 U/L (12-78)
[2017-03-12 12:02] LABS: ALK PHOS 88 U/L (45-117); BILIRUBIN,TOTAL 0.3 mg/dL (0.2-1.0); TOT PROT 6.9 g/dl (6.4-8.2)
[2017-03-12 12:21] LABS: URINE LEUK ESTERASE Negative (NEGATIVE)
[2017-03-12] MEDS: hydrOXYzine PAMOATE 25 MG CAPSULE (FP) PO PRN (18:15)
[2017-03-12] MEDS: THIAMINE HCL 100 MG TABLET (FP) PO SCH (22:32)
[2017-03-12] MEDS: traZODone HCL 50 MG TABLET (FP) PO SCH (22:32)
[2017-03-13] MEDS: chlordiazePOXIDE HCL 25 MG CAPSULE PO SCH ×2 (05:19→10:39)
[2017-03-13] MEDS: NICOTINE 14 MG/24 HOURS TOPICAL PATCH TD SCH (10:39)
[2017-03-13] MEDS: PANTOPRAZOLE 20 MG TABLET (FP) PO SCH (10:39)
[2017-03-13] MEDS: PRENATAL VITAMINS W/ FOLIC ACID TABLET (FP) PO SCH (10:39)
[2017-03-13] MEDS: LIDOCAINE 5% TOPICAL PATCH TP SCH (11:29)
[2017-03-13] MEDS: METHYL SALICYLATE/MENTHOL OINT 30 GM TUBE TP SCH ×2 (11:29→22:10)
[2017-03-13] MEDS: CYCLOBENZAPRINE HCL 10 MG TABLET (FP) PO PRN ×2 (11:31→22:11)
--- NOTE | 2017-03-13 12:50 | PN ---
S CIWA - CIWA Score Nausea/Vomitin-No Nausea/No Vomiting Muscle Tremors: 4-Moderate,w/Arms Extend Anxiety: 3 Agitation: 3 Paroxysmal Sweats: 3 Orientation: 0-Oriented Tacttile Disturbances: 0-None Auditory Disturbances: 0-None Visual Disturbances: 0-None Headache: 0-None Present CIWA-Ar Total Score: 13 S Progress Note (SOAP) Subjective: body aches sweats shakes interrupted sleep Objective: 03/13/17 12:49 Vital Signs Temperature 99.0 F 03/13/17 09:40 Pulse Rate 78 03/13/17 09:40 Respiratory Rate 16 03/13/17 09:40 Blood Pressure 144/82 03/13/17 09:40 O2 Sat by Pulse Oximetry (%) Laboratory Tests 03/11/17 03/12/17 03/12/17 22:28 08:45 08:45 WBC 6.3 RBC 5.37 H Hgb 12.9 Hct 41.3 MCV 76.8 L MCH 23.9 L MCHC 31.2 L RDW 16.2 H Plt Count 296 MPV 8.5 Sodium 144 Potassium 3.9 Chloride 106 Carbon Dioxide 32 Anion Gap 6 L BUN 9 Creatinine 0.7 Creat Clearance w eGFR > 60 Random Glucose 78 Calcium 8.9 Total Bilirubin 0.3 D AST 12 L D ALT 16 D Alkaline Phosphatase 88 Total Protein 6.9 Albumin 3.3 L Urine Color Lt. yellow Urine Appearance Clear Urine pH 6.0 Ur Specific [place] >= 1.030 Urine Protein Negative Urine Glucose (UA) Negative Urine Ketones Negative Urine Blood Negative Urine Nitrite Negative Urine Bilirubin 1+ H Urine Urobilinogen 0.2 Ur Leukocyte Esterase Negative RPR Titer 03/12/17 08:45 WBC RBC Hgb Hct MCV MCH MCHC RDW Plt Count MPV Sodium Potassium Chloride Carbon Dioxide Anion Gap BUN Creatinine Creat Clearance w eGFR Random Glucose Calcium Total Bilirubin AST ALT Alkaline Phosphatase Total Protein Albumin Urine Color Urine Appearance Urine pH Ur Specific [place] Urine Protein Urine Glucose (UA) Urine Ketones Urine Blood Urine Nitrite Urine Bilirubin Urine Urobilinogen Ur Leukocyte Esterase RPR Titer Nonreactive aaox3 ambulating no acute distress Assessment: 03/13/17 12:49 withdrawal sx Plan: continue detox increase fluids lidocaine patch flexiril prn motrin 800mg
--- NOTE | 2017-03-13 13:33 | EKG ---
Test Reason : Blood Pressure : / mmHG Vent. Rate : 082 BPM Atrial Rate : 082 BPM P-R Int : 154 ms QRS Dur : 072 ms QT Int : 388 ms P-R-T Axes : 073 068 061 degrees QTc Int : 453 ms SINUS RHYTHM WITH PREMATURE SUPRAVENTRICULAR COMPLEXES BIATRIAL ENLARGEMENT ABNORMAL ECG WHEN COMPARED WITH ECG OF 22-AUG-2016 16:10, PREMATURE SUPRAVENTRICULAR COMPLEXES ARE NOW PRESENT Confirmed by NANCY NIXON, SESAR ([id number]) on 03/13/2017 1:33:19 PM Referred By: Confirmed By:SESAR CRUZ MD
[2017-03-13] MEDS: chlordiazePOXIDE 5 MG CAPSULE PO SCH ×2 (17:00→22:11)
[2017-03-13] MEDS: ALBUTEROL SO4 18 GM HFA INHALER IH PRN (17:41)
[2017-03-13] MEDS: THIAMINE HCL 100 MG TABLET (FP) PO SCH (22:10)
[2017-03-13] MEDS: traZODone HCL 50 MG TABLET (FP) PO SCH (22:11)
[2017-03-13] MEDS: LIDOCAINE PATCH REMOVAL MC SCH (22:39)
[2017-03-14] MEDS: chlordiazePOXIDE 5 MG CAPSULE PO SCH ×2 (05:21→10:10)
[2017-03-14] MEDS: IBUPROFEN 400 MG TABLET (FP) PO PRN ×2 (09:52→17:05)
[2017-03-14] MEDS: LIDOCAINE 5% TOPICAL PATCH TP SCH (09:53)
[2017-03-14] MEDS: METHYL SALICYLATE/MENTHOL OINT 30 GM TUBE TP SCH ×2 (09:53→22:09)
[2017-03-14] MEDS: PRENATAL VITAMINS W/ FOLIC ACID TABLET (FP) PO SCH (09:53)
[2017-03-14] MEDS: NICOTINE 14 MG/24 HOURS TOPICAL PATCH TD SCH (10:10)
[2017-03-14] MEDS: PANTOPRAZOLE 20 MG TABLET (FP) PO SCH (10:10)
[2017-03-14] MEDS: ALBUTEROL SO4 18 GM HFA INHALER IH PRN ×2 (10:14→22:11)
--- NOTE | 2017-03-14 12:01 | PN ---
BHS Progress Note (SOAP) Subjective: body aches sweats Objective: 03/14/17 12:00 Vital Signs Temperature 97.7 F 03/14/17 09:32 Pulse Rate 84 03/14/17 09:32 Respiratory Rate 18 03/14/17 09:32 Blood Pressure 125/83 03/14/17 09:32 O2 Sat by Pulse Oximetry (%) aaox3 ambulating no acute distress Assessment: 03/14/17 12:00 withdrawal sx Plan: continue detox d/c in am motrin prn
[2017-03-14] MEDS: CYCLOBENZAPRINE HCL 10 MG TABLET (FP) PO PRN ×2 (12:41→22:09)
[2017-03-14] MEDS: chlordiazePOXIDE HCL 10 MG CAPSULE PO SCH ×2 (17:06→22:09)
[2017-03-14] MEDS: traZODone HCL 50 MG TABLET (FP) PO SCH (22:09)
[2017-03-14] MEDS: THIAMINE HCL 100 MG TABLET (FP) PO SCH (22:10)
[2017-03-14] MEDS: LIDOCAINE PATCH REMOVAL MC SCH (22:10)
[2017-03-15] MEDS: chlordiazePOXIDE HCL 10 MG CAPSULE PO SCH (05:31)
[2017-03-15] MEDS: CYCLOBENZAPRINE HCL 10 MG TABLET (FP) PO PRN ×2 (05:32→09:17)
[2017-03-15] MEDS: IBUPROFEN 400 MG TABLET (FP) PO PRN ×2 (05:32→09:16)
[2017-03-15] MEDS: PANTOPRAZOLE 20 MG TABLET (FP) PO SCH (09:16)
[2017-03-15] MEDS: PRENATAL VITAMINS W/ FOLIC ACID TABLET (FP) PO SCH (09:17)
--- NOTE | 2017-03-15 09:26 | DS ---
[facility] Detox Discharge Summary Admission Date: 03/11/17 Discharge Date: 03/15/17 - History Present History: Alcohol Dependence, Cannabis Dependence, Cocaine Dependence - Physical Exam Results Vital Signs: Vital Signs Temperature 97.2 F L 03/15/17 06:24 Pulse Rate 62 03/15/17 06:24 Respiratory Rate 16 03/15/17 06:24 Blood Pressure 112/67 03/15/17 06:24 O2 Sat by Pulse Oximetry (%) - Treatment Hospital Course: Detox Protocol Followed, Detoxed Safely, Responded well, Discharged Condition Good, Rehab Referral Accepted - Medication Discharge Medications: Ambulatory Orders Trazodone HCl [Desyrel -] 50 mg PO HS #30 tablet 05/29/14 Lansoprazole [Prevacid -] 30 mg PO DAILY 08/22/16 Quetiapine Fumarate [Seroquel -] 50 mg PO HS 08/22/16 Albuterol Sulfate Inhaler - [Ventolin HFA Inhaler -] 2 inh PO Q4H PRN #1 inhaler 03/15/17 Ibuprofen [Motrin -] 800 mg PO TID PRN #90 tablet 03/15/17 - Diagnosis (1) Cannabis dependence Current Visit: Yes Status: Chronic (2) Alcohol dependence with uncomplicated withdrawal Current Visit: Yes Status: Chronic (3) Cocaine dependence Current Visit: Yes Status: Chronic (4) Asthma Current Visit: Yes Status: Chronic Qualifiers: Asthma severity: mild Asthma persistence: intermittent Asthma complication type: uncomplicated Qualified Code(s): J45.20 - Mild intermittent asthma, uncomplicated (5) Drug withdrawal seizure Current Visit: Yes Status: Chronic Qualifiers: Complication of substance-induced condition: uncomplicated Qualified Code(s ): F19.230 - Other psychoactive substance dependence with withdrawal, uncomplicated (6) Syncope Current Visit: Yes Status: Chronic (7) Weight decreased Current Visit: No Status: Active (8) Drug-induced mood disorder Current Visit: No Status: Acute (9) Insomnia Current Visit: No Status: Acute (10) Bipolar disorder Current Visit: No Status: Chronic (11) Constipation Current Visit: No Status: Chronic Qualifiers: Constipation type: unspecified constipation type Qualified Code(s): K59.00 - Constipation, unspecified (12) GERD (gastroesophageal reflux disease) Current Visit: No Status: Chronic Qualifiers: Esophagitis presence: without esophagitis Qualified Code(s): K21.9 - Gastro -esophageal reflux disease without esophagitis (13) Hepatitis C carrier Current Visit: No Status: Chronic (14) Alcohol related seizure Current Visit: No Status: Suspected - AMA Did Patient Leave Against Medical Advice: No
[2017-03-15] MEDS: hydrOXYzine PAMOATE 25 MG CAPSULE (FP) PO PRN (09:39)
[2017-03-15 10:14] VITALS: BP 124/99; PULSE 75; TEMP 96.4
== END 2017-03-15 09:55 | disposition home or self-care (01) | DRG 774 ==
LOC: YASAS 12:33 → Y6N 15:22
PROVIDERS: ADMIT Internal Medicine; ATTEND Internal Medicine
PROC: HZ2ZZZZ Detoxification Services for Substance Abuse Treatment (ICD-10-PCS; principal; 2017-03-11)
DX: F10.230 Alcohol dependence with withdrawal, uncomplicated (principal); F14.20 Cocaine dependence, uncomplicated; F12.20 Cannabis dependence, uncomplicated; F19.24 Other psychoactive substance dependence with psychoactive substance-induced mood disorder; F19.230 Other psychoactive substance dependence with withdrawal, uncomplicated; F31.9 Bipolar disorder, unspecified; K21.9 Gastro-esophageal reflux disease without esophagitis; K59.00 Constipation, unspecified; R63.4 Abnormal weight loss; Z68.35 Body mass index [BMI] 35.0-35.9, adult
CPT/HCPCS: 36415; 80053; 81003; 85027; 86593; 93005; 93010

== ENCOUNTER 2017-08-11 11:36 | Inpatient (IN) | payer OTHER ==
[2017-08-11 11:57] VITALS: BMI 35.4
--- NOTE | 2017-08-11 14:15 | HP ---
CIWA Score - CIWA Score Nausea/Vomitin Muscle Tremors: 2 Anxiety: 3 Agitation: 3 Paroxysmal Sweats: 1-Minimal Palms Moist Orientation: 0-Oriented Tacttile Disturbances: 0-None Auditory Disturbances: 0-None Visual Disturbances: 0-None Headache: 2-Mild CIWA-Ar Total Score: [address] [facility] Chief Complaint: alcohol and benzodiazepine withdrawal sx Allergies/Adverse Reactions: Allergies Allergy/AdvReac Type Severity Reaction Status Date / Time No Known Drug Allergies Allergy Verified 08/11/17 12:40 diphenhydramine AdvReac Severe Itching Verified 08/11/17 12:40 diphenhydramine HCl AdvReac Severe Itching Verified 08/11/17 12:40 [From [facility]] History of Present Illness: 56 yo f with h/o polysubstance use - cocaine , THC, benzodiazepines and alcohol requesting inpatient detoxification from alcohol and benzodiazepiens because of wihtdrawal sx. currently completed rx for Hep c, cleared virus. PMHX anxiety, depressiona dn insomnia, Hep c being treateed. smokes 2 cigars daily, h/o withdrawal seizures, 2 years ago, no SI at this time Exam Limitations: No Limitations - Ebola screening Have you traveled outside of the country in the last 21 days: No Have you had contact with anyone from an Ebola affected area: No Have you been sick,other than usual withdrawal symptoms: No Do you have a fever: No - Review of Systems Constitutional: Chills, Diaphoresis, Night Sweats, Changes in sleep, Weight Stable EENT: reports: No Symptoms Reported, Ear Pain (clogged up from cocaine use, sniffs and smokes crack) Respiratory: reports: No Symptoms reported Cardiac: reports: No Symptoms Reported GI: reports: Constipated, Nausea, Poor Fluid Intake, Indigestion, Abdominal cramping : reports: No Symptoms Reported Musculoskeletal: reports: Back Pain, Joint Pain (bilateral hip pain from arthritis) Integumentary: reports: Flushing, Sweating, Other (poor skin turgor) Neuro: reports: Headache, Seizure (2 years ago), Tremors Endocrine: reports: Increased Thirst Hematology: reports: No Symptoms Reported Psychiatric: reports: Judgement Intact, Mood/Affect Appropiate, Orientated x3, Anxious, Depressed Other Systems: Reviewed and Negative Patient History - Patient Medical History Hx Anemia: No Hx Asthma: Yes Hx Chronic Obstructive Pulmonary Disease (COPD): No Hx Cancer: No Hx Cardiac Disorders: No Hx Congestive Heart Failure: No Hx Hypertension: No Hx Hypercholesterolemia: No Hx Pacemaker: No HX Cerebrovascular Accident: No Hx Seizures: Yes (etoh related last in 2015) Hx Dementia: No Hx Diabetes: No Hx Gastrointestinal Disorders: No Hx Liver Disease: No Hx Genitourinary Disorders: No Hx Sexually Transmitted Disorders: No Hx Renal Disease (ESRD): No Hx Thyroid Disease: No Hx Human Immunodeficiency Virus (HIV): No (NEGATVE last 04/25) Hx Hepatitis C: Yes (just completed treated with three pills) Hx Depression: Yes Hx Suicide Attempt: No (no SI a this time) Hx Bipolar Disorder: Yes (on meds, history of hospitalizations at [place] ) Hx Schizophrenia: No - Patient Surgical History Past Surgical History: Yes Hx Neurologic Surgery: No Hx Cataract Extraction: No Hx Cardiac Surgery: No Hx Lung Surgery: No Hx Breast Surgery: No Hx Breast Biopsy: No Hx Abdominal Surgery: No Hx Appendectomy: No Hx Cholecystectomy: No Hx Genitourinary Surgery: No Hx Section: No Hx Orthopedic Surgery: No Hx Hysterectomy: No Other Surgical History: UMBILICAL HERNIA REPAIR at childhood Anesthesia Reaction: No - PPD History Previous Implant?: Yes Documented Results: Negative w/proof Implanted On Prior [facility] Admission?: Yes Date: 08/24/16 Results: 0 MM PPD to be Administered?: No - Reproductive History Patient is a Female of Child Bearing Age (11 -55 yrs old): Yes Last Menstrual Period: 06/22/16 Patient : No - Smoking Cessation Smoking history: Current every day smoker Have you smoked in the past 12 months: Yes Aproximately how many cigarettes per day: 30 (NOT CURRENTLY;USES PATCH) If you are a former smoker, when did you quit?: 10 years Cigars Per Day: 2 Hx Chewing Tobacco Use: No Initiated information on smoking cessation: Yes 'Breaking Loose' booklet given: 08/11/17 - Substance & Tx. History Hx Alcohol Use: Yes Hx Substance Use: Yes Substance Use Type: Alcohol, Cocaine, Marijuana, Prescribed, Tranquilizers Hx Substance Use Treatment: Yes ([facility] detox ) - Substances Abused Alcohol Route: Oral Frequency: Daily Amount used: 1 PINT VODKA/ 6PK BEER Age of first use: 15 Date of Last Use: 08/11/17 Cocaine Route: Smoking Frequency: Daily Amount used: $40 Age of first use: 22 Date of Last Use: 08/09/17 Marijuana/Hashish Route: Smoking Frequency: Daily Amount used: 2 JOINTS Age of first use: 15 Date of Last Use: 08/11/17 Family Disease History - Family Disease History Family Disease History: Heart Disease: Father (,ALCOHOL), Mother (htn, ), Other: Father, Mother, Brother (five, healthy), Sister (seven - two use ALCOHOL/DRUG), Son (2 - healthy), Daughter (1 - healthy) Admission Physical Exam [facility] - Vital Signs Vital Signs: Vital Signs - 24 hr 08/11/17 11:55 Temperature 97.7 F Pulse Rate 69 Respiratory 17 Rate Blood Pressure 135/90 - Physical General Appearance: Yes: No Apparent Distress, Nourished, Appropriately Dressed , Disheveled, Mild Distress, Obese, Tremorous, Irritable, Sweating, Anxious HEENTM: Yes: Within Normal Limits, EOMI, Hearing grossly Normal, Normal ENT Inspection, Normocephalic, Normal Voice, ALLAN Respiratory: Yes: Within Normal Limits, Chest Non-Tender, Lungs Clear, Normal Breath Sounds, No Respiratory Distress, No Accessory Muscle Use Neck: Yes: Within Normal Limits, No masses,lesions,Nodules, Supple, Trachea in good position Breast: Yes: Breast Exam Deferred Cardiology: Yes: Within Normal Limits, Regular Rhythm, Regular Rate, S1, S2 Abdominal: Yes: Normal Bowel Sounds, Non Tender, Soft, Protuberent, Distended, Surgical Scar (umbiica hernia repair) Genitourinary: Yes: Within Normal Limits Back: Yes: Normal Inspection, Muscle Spasm Musculoskeletal: Yes: full range of Motion, Gait Steady, Pelvis Stable, Back pain Neurological: Yes: 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 worker II-XII NML intact, Fully Oriented, Alert, Motor Strength 5/5, Normal Response, Depressed Affect Integumentary: Yes: Normal Color, Warm, Diaphoresis, Moist, Track [place] (old tracks no infection), Other (poor skin turgor) Lymphatic: Yes: Within Normal Limits Cleared for Admission [facility] - Detox or Rehab [facility] Level of Care: Medically Managed Detox Regimen/Protocol: Librium [facility] Breath Alcohol Content Breath Alcohol Content: 0.042 Urine Drug Screen - Results Drug Screen Negative: No Urine Drug Screen Results: THC-Marijuana, MARY-Cocaine
[2017-08-11] MEDS ORDERED: MAGNESIUM HYDROX 2400MG/30ML ORAL SUSPENSION 30 ML CUP PO PRN (14:19)
[2017-08-11] MEDS ORDERED: ACETAMINOPHEN 325 MG TABLET (FP) PO PRN (14:19)
[2017-08-11] MEDS ORDERED: LOPERAMIDE HCL 2 MG CAPSULE PO PRN (14:19)
[2017-08-11] MEDS ORDERED: guaiFENesin/D-METHORPHAN HB 10 ML UNIT-DOSE CUPS PO PRN (14:19)
[2017-08-11] MEDS ORDERED: chlordiazePOXIDE HCL 25 MG CAPSULE PO PRN (14:19)
[2017-08-11] MEDS ORDERED: NICOTINE POLACRILEX 2 MG GUM BC PRN (14:19)
[2017-08-11] MEDS ORDERED: IBUPROFEN 400 MG TABLET (FP) PO PRN (14:19)
[2017-08-11] MEDS ORDERED: MAG HYDROX/AL HYDROX/SIMETH 30 ML UNIT-DOSE CUP PO PRN (14:19)
[2017-08-11] MEDS ORDERED: MENTHOL/PHENOL 1 EACH UD MM PRN (14:19)
[2017-08-11] MEDS ORDERED: MAGNESIUM CITRATE 300 ML BOTTLE PO PRN (14:19)
[2017-08-11] MEDS ORDERED: chlordiazePOXIDE HCL 25 MG CAPSULE PO ONE (15:30)
[2017-08-11] MEDS: chlordiazePOXIDE HCL 25 MG CAPSULE PO SCH ×2 (17:25→22:19)
[2017-08-11] MEDS: NICOTINE 7 MG/24 HOURS TOPICAL PATCH TD SCH (17:27)
[2017-08-11] MEDS ORDERED: DOCUSATE SODIUM 100 MG CAPSULE (FP) PO SCH (22:00)
[2017-08-11] MEDS ORDERED: THIAMINE HCL 100 MG TABLET (FP) PO SCH (22:00)
[2017-08-11] MEDS ORDERED: MELATONIN 5 MG TABLETS PO PRN (22:00)
[2017-08-11] MEDS: ALBUTEROL SO4 18 GM HFA INHALER IH PRN (22:21)
[2017-08-12] MEDS: chlordiazePOXIDE HCL 25 MG CAPSULE PO SCH ×2 (05:26→10:46)
[2017-08-12] MEDS ORDERED: PRENATAL VITAMINS W/ FOLIC ACID TABLET (FP) PO SCH (10:00)
[2017-08-12] MEDS: NICOTINE 7 MG/24 HOURS TOPICAL PATCH TD SCH (10:47)
[2017-08-12 10:52] LABS: HEMATOCRIT 38.9 % (32.4-45.2); HEMOGLOBIN 12.6 GM/dL (10.7-15.3); MCH 24.4 pg (25.7-33.7); MCHC 32.2 g/dl (32.0-36.0); MEAN CELL VOLUME 75.5 fl (80-96); MEAN PLT VOLUME 8.9 fl (7.5-11.1); PLATELET COUNT 299 K/MM3 (134-434); RBC 5.15 M/mm3 (3.60-5.2); RDW 16.2 % (11.6-15.6); WHITE BLOOD COUNT 6.4 K/mm3 (4.0-10.0)
[2017-08-12 11:06] LABS: ALK PHOS 86 U/L (45-117); ANION GAP 4 (8-16); BILIRUBIN,TOTAL 0.3 mg/dL (0.2-1.0); BLOOD UREA NITROGEN 9 mg/dL (7-18); CALCIUM 8.7 mg/dL (8.5-10.1); CHLORIDE 106 mmol/L (98-107); CO2 30 mmol/L (21-32); CREATININE 0.6 mg/dL (0.55-1.02); GLUCOSE,RANDOM 73 mg/dL (74-106); POTASSIUM 3.9 mmol/L (3.5-5.1); SGOT/AST 18 U/L (15-37); SGPT/ALT 15 U/L (12-78); SODIUM 140 mmol/L (136-145)
[2017-08-12] MEDS ORDERED: LIDOCAINE 5% TOPICAL PATCH TP SCH (12:00)
[2017-08-12] MEDS: P-EPHED 60MG/TRIPROLIDI 2.5MG TABLET PO PRN ×2 (12:13→18:13)
--- NOTE | 2017-08-12 14:26 | PN ---
S CIWA - CIWA Score Nausea/Vomitin Muscle Tremors: 2 Anxiety: 2 Agitation: 2 Paroxysmal Sweats: 2 Orientation: 0-Oriented Tacttile Disturbances: 2-Mild Itch/Numbness/Burn Auditory Disturbances: 0-None Visual Disturbances: 1-Very Mild Sensitivity Headache: 2-Mild CIWA-Ar Total Score: 15 S Progress Note (SOAP) Subjective: Back pain, sleeplessness, nasal congestion and constipation Objective: 08/12/17 14:25 Vital Signs - 8 hr 08/12/17 08/12/17 08/12/17 06:31 11:18 14:13 Temperature 97.9 F 97.2 F L 97.3 F L Pulse Rate 56 L 74 81 Respiratory 18 18 18 Rate Blood Pressure 119/67 141/90 141/89 Laboratory Last Values WBC 6.4 K/mm3 (4.0-10.0) 08/12/17 06:00 RBC 5.15 M/mm3 (3.60-5.2) 08/12/17 06:00 Hgb 12.6 GM/dL (10.7-15.3) 08/12/17 06:00 Hct 38.9 % (32.4-45.2) 08/12/17 06:00 MCV 75.5 fl (80-96) L 08/12/17 06:00 MCH 24.4 pg (25.7-33.7) L 08/12/17 06:00 MCHC 32.2 g/dl (32.0-36.0) 08/12/17 06:00 RDW 16.2 % (11.6-15.6) H 08/12/17 06:00 Plt Count 299 K/MM3 (134-434) 08/12/17 06:00 MPV 8.9 fl (7.5-11.1) 08/12/17 06:00 Sodium 140 mmol/L (136-145) 08/12/17 06:00 Potassium 3.9 mmol/L (3.5-5.1) 08/12/17 06:00 Chloride 106 mmol/L (98-107) 08/12/17 06:00 Carbon Dioxide 30 mmol/L (21-32) 08/12/17 06:00 Anion Gap 4 (8-16) L 08/12/17 06:00 BUN 9 mg/dL (7-18) 08/12/17 06:00 Creatinine 0.6 mg/dL (0.55-1.02) 08/12/17 06:00 Creat Clearance w eGFR > 60 (>60) 08/12/17 06:00 Random Glucose 73 mg/dL (74-106) L 08/12/17 06:00 Calcium 8.7 mg/dL (8.5-10.1) 08/12/17 06:00 Total Bilirubin 0.3 mg/dL (0.2-1.0) 08/12/17 06:00 AST 18 U/L (15-37) 08/12/17 06:00 ALT 15 U/L (12-78) 08/12/17 06:00 Alkaline Phosphatase 86 U/L (45-117) 08/12/17 06:00 Total Protein 8.0 g/dl (6.4-8.2) 08/12/17 06:00 Albumin 4.0 g/dl (3.4-5.0) 08/12/17 06:00 RPR Titer Nonreactive (NONREACTIVE) 08/12/17 06:00 HIV 1&2 Antibody Screen Negative 08/11/17 12:00 HIV P24 Antigen Negative 08/11/17 12:00 Labs noted Assessment: 08/12/17 14:26 Withdrawal sx Plan: Continue detox
--- NOTE | 2017-08-12 14:40 | EKG ---
Test Reason : Blood Pressure : / mmHG Vent. Rate : 070 BPM Atrial Rate : 070 BPM P-R Int : 156 ms QRS Dur : 074 ms QT Int : 386 ms P-R-T Axes : 073 072 065 degrees QTc Int : 416 ms NORMAL SINUS RHYTHM WITH SINUS ARRHYTHMIA POSSIBLE LEFT ATRIAL ENLARGEMENT BORDERLINE ECG WHEN COMPARED WITH ECG OF 11-MAR-2017 16:50, PREMATURE SUPRAVENTRICULAR COMPLEXES ARE NO LONGER PRESENT Confirmed by MD Joey, Adan ([id number]) on 08/12/2017 2:39:42 PM Referred By: Confirmed By:Adan Cook MD
--- NOTE | 2017-08-12 15:51 | CONSULT ---
[facility] Psychiatric Consult - Data Date of interview: 08/12/17 Admission source: [facility] Identifying data: Readmission to [facility] for this 56 y/o AA female seeking detox treatment, on , for alcohol,cocaine and cannabis dependence.Patient is single,a mother of three,domiciled,unemployed and currently supported on food stamps (SSI cancelled). Substance Abuse History: Confirmed by patient in this session.Details in current [facility] report : Smoking history: Current every day smoker. Have you smoked in the past 12 months: Yes. Aproximately how many cigarettes per day: 30 (NOT CURRENTLY;USES PATCH). If you are a former smoker, when did you quit?: 10 years. Cigars Per Day: 2. Hx Chewing Tobacco Use: No. Initiated information on smoking cessation: Yes. 'Breaking Loose' booklet given: . - Substance & Tx. History. Hx Alcohol Use: Yes. Hx Substance Use: Yes. Substance Use Type: Alcohol, Cocaine, Marijuana, Prescribed, Tranquilizers. Hx Substance Use Treatment: Yes ([facility] inpatient detox ). - Substances Abused. Alcohol. Route: Oral. Frequency: Daily. Amount used: 1 PINT VODKA / 6PK BEER. Age of first use: 15. Date of Last Use: 08/11/17. Cocaine. Route: Smoking. Frequency: Daily. Amount used: $40. Age of first use: 22. Date of Last Use: 08/09/17. Marijuana/Hashish. Route: Smoking. Frequency: Daily. Amount used: 2 JOINTS. Age of first use: 15. Date of Last Use: Medical History: Significant for a history of chronic lumbar pain,hepatitis C, bronchial asthma,withdrawal-related seizures,GERD and a distant antecedent of umbilical herniorraphy. Psychiatric History: No history of psychiatric hopsitalizations.Patient endorses the diagnosis of Bipolar Disorder (made about 15 years ago).Ms Sadler continues to get her psychiatric OPD care at [facility] where she sees Dr Agarwal,on a monthly basis,for medication management.Prescribed trazodone and clonazepam (she stopped taking seroquel due to intolerable side effects).No reported history of suicide attempts. Physical/Sexual Abuse/Trauma History: Patient denies. Additional Comment: Urine Drug Screen Results: THC-Marijuana, MARY-Cocaine.Noted. Mental Status Exam - Mental Status Exam Alert and Oriented to: Time, Place, Person Patient Appearance: Well Groomed (overweight) Mood: Nervous, Withdrawn Affect: Appropriate, Mood Congruent Patient Behavior: Fatigued, Appropriate, Cooperative Speech Pattern: Clear Voice Loudness: Normal Thought Process: Intact, Goal Oriented Thought Disorder: Not Present Hallucinations: Denies Suicidal Ideation: Denies Homicidal Ideation: Denies Insight/Judgement: Poor Sleep: Poorly, Difficulty falling asleep Appetite: Good Muscle strength/Tone: Normal Gait/Station: Normal Psychiatric Findings - Problem List ([place] 1, 2,3) (1) Alcohol dependence with uncomplicated withdrawal Current Visit: Yes Status: Acute (2) Cannabis dependence Current Visit: Yes Status: Chronic (3) Cocaine dependence Current Visit: Yes Status: Chronic (4) Drug-induced mood disorder Current Visit: Yes Status: Acute (5) Insomnia Current Visit: Yes Status: Acute - Initial Treatment Plan Initial Treatment Plan: Psychoeducation.Sleeep hygiene.Detoxification.Trazodone 50 mg po hs.Side effects/benefits discussed with the patient.She agrees with this plan of care.Observation.
[2017-08-12] MEDS: ALBUTEROL SO4 18 GM HFA INHALER IH PRN (15:54)
[2017-08-12] MEDS ORDERED: chlordiazePOXIDE HCL 25 MG CAPSULE PO SCH (17:00)
[2017-08-12 18:18] VITALS: BP 152/93; PULSE 89; TEMP 97.9
[2017-08-12] MEDS ORDERED: traZODone HCL 50 MG TABLET (FP) PO SCH (22:00)
[2017-08-12] MEDS ORDERED: LIDOCAINE PATCH REMOVAL MC SCH (22:00)
[2017-08-13] MEDS ORDERED: chlordiazePOXIDE 5 MG CAPSULE PO SCH (17:00)
[2017-08-14] MEDS ORDERED: chlordiazePOXIDE HCL 10 MG CAPSULE PO SCH (17:00)
--- NOTE | 2017-08-25 14:58 | DS ---
[facility] Detox Discharge Summary Admission Date: 08/11/17 Discharge Date: 08/12/17 - History Present History: Alcohol Dependence, Cannabis Dependence, Cocaine Dependence Additional Comments: Patient signed out AMA. She declined to state the reason for wanting to leave. Encouraged by nursing & unit counsellor however patient was in [place] to leave the unit. MUSEUM ARCHIVIST Azael Li notified The patient understands the risks and complications that may result from the refusal of medical care which may include and permanent disability. The patient has the mental capacity of understanding the risks of refusing care and is capable of making an informed decision. Patient was given her AMA document to which she signed in the present of machine sign writer. Patient left [id number] at 7:15pm with no gait disturbance. All personal properties on the unit were returned. Pertinent Past History: anxiety, depression and insomnia, nicotien dependence, GERD - Physical Exam Results Vital Signs: Vital Signs Temperature 97.9 F 08/12/17 18:18 Pulse Rate 89 08/12/17 18:18 Respiratory Rate 18 08/12/17 18:18 Blood Pressure 152/93 08/12/17 18:18 O2 Sat by Pulse Oximetry (%) Pertinent Admission Physical Exam Findings: withdrawal sx, dehydration - Treatment Hospital Course: Detox Protocol Followed Patient has Accepted a Rehab Referral to: no - Medication Discharge Medications: Ambulatory Orders traZODone HCL [Desyrel -] 50 mg PO HS #30 tablet 05/29/14 Quetiapine Fumarate [Seroquel -] 50 mg PO HS 08/22/16 Albuterol Sulfate Inhaler - [Ventolin HFA Inhaler -] 2 inh PO Q4H PRN #1 inhaler 03/15/17 clonazePAM [Klonopin -] 0.5 mg PO BID 08/11/17 - Diagnosis (1) Alcohol dependence with uncomplicated withdrawal Status: Acute (2) Drug-induced mood disorder Status: Acute (3) Hepatitis C Status: Acute (4) Sedative, hypnotic or anxiolytic dependence with withdrawal, uncomplicated Status: Acute (5) Asthma Status: Chronic Qualifiers: Asthma severity: mild Asthma persistence: intermittent Asthma complication type: uncomplicated Qualified Code(s): J45.20 - Mild intermittent asthma, uncomplicated (6) Bipolar disorder Status: Chronic (7) Cannabis dependence Status: Chronic (8) Cocaine dependence Status: Chronic (9) Drug withdrawal seizure Status: Chronic Qualifiers: Complication of substance-induced condition: uncomplicated Qualified Code(s ): F19.230 - Other psychoactive substance dependence with withdrawal, uncomplicated (10) GERD (gastroesophageal reflux disease) Status: Chronic Qualifiers: Esophagitis presence: without esophagitis Qualified Code(s): K21.9 - Gastro -esophageal reflux disease without esophagitis - AMA Did Patient Leave Against Medical Advice: Yes
== END 2017-08-12 19:17 | disposition left against medical advice (07) | DRG 770 ==
LOC: YASAS 11:36 → Y6N 15:02
PROVIDERS: ADMIT Surgery; ATTEND Surgery
PROC: HZ2ZZZZ Detoxification Services for Substance Abuse Treatment (ICD-10-PCS; principal; 2017-08-11)
DX: F10.230 Alcohol dependence with withdrawal, uncomplicated (principal); F14.20 Cocaine dependence, uncomplicated; F12.20 Cannabis dependence, uncomplicated; F19.24 Other psychoactive substance dependence with psychoactive substance-induced mood disorder; G47.00 Insomnia, unspecified; F31.9 Bipolar disorder, unspecified; J45.909 Unspecified asthma, uncomplicated; Z86.69 Personal history of other diseases of the nervous system and sense organs
CPT/HCPCS: 36415; 80053; 85027; 86593; 87389; 93005; 93010

== ENCOUNTER 2019-10-27 13:10 | Inpatient (IN) | payer OTHER ==
--- NOTE | 2019-10-27 15:32 | BHS.RME ---
Substance Use & Tx History - Substance Use History Alcohol Substance amount: 2pints of liguor vodka/ 6 paks of 12 ozs Frequency of use: Daily Substance route: Oral Date of Last Use: 10/28/19 Cocaine-Crack Substance amount: 50$ of crack Frequency of use: Daily Substance route: Smoking Date of Last Use: 10/26/19 Marijuana/Hashish Substance amount: 1 joimt Frequency of use: Daily Substance route: Smoking Date of Last Use: 10/27/19 - Last Treatment Date of last treatment: [facility] 08/11/17 to 08/12/17 not completed Where was last treatment: Detox ([facility]05) Physical/Psych/Mental Status - Behavior Eye Contact: Normal Other Behaviors: Mannerisms - Cooperativeness Cooperativeness: Cooperative - Thinking Thought Processes: Logical Thought content: Future oriented - Physical Health Problems Is patient presently having any pain?: No Does patient presently have any injuries (include location): No Does patient currently have a fever: No CIWA Nausea/Vomitin Muscle Tremors: 3 Anxiety: 3 Agitation: 3 Paroxysmal Sweats: 1-Minimal Palms Moist Orientation: 0-Oriented Tacttile Disturbances: 1-Very Mild Itch/Numbness Auditory Disturbances: 0-None Visual Disturbances: 0-None Headache: 2-Mild CIWA-Ar Total Score: 15
--- NOTE | 2019-10-27 16:00 | HP ---
CIWA Score Nausea/Vomitin Muscle Tremors: 3 Anxiety: 3 Agitation: 3 Paroxysmal Sweats: 1-Minimal Palms Moist Orientation: 0-Oriented Tacttile Disturbances: 1-Very Mild Itch/Numbness Auditory Disturbances: 0-None Visual Disturbances: 0-None Headache: 2-Mild CIWA-Ar Total Score: 15 - Admission Criteria OASAS Guidelines: Admission for Medically Managed Detox: Requires at least one of the followin. CIWA greater than 12 2. Seizures within the past 24 hours 3. Delirium tremens within the past 24 hours 4. Hallucinations within the past 24 hours 5. Acute intervention needed for co occurring medical disorder 6. Acute intervention needed for co occurring psychiatric disorder 7. Severe withdrawal that cannot be handled at a lower level of care (continued vomiting, continued diarrhea, abnormal vital signs) requiring intravenous medication and/or fluids 8. 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 History Source: Patient Limitations to Obtaining History: No Limitations - Past Medical History [employer]: Yes: Seizure Pulmonary: Yes: Asthma Gastrointestinal: Yes: GERD Hepatobiliary: Yes: Hepatitis C Renal/: Yes: Renal Failure ...LMP: 12/25/17 ...: No Psych: Yes: Bipolar Additional Past Medical History: umbilical hernia at age of 6 year - Smoking History Smoking history: Current every day smoker Have you smoked in the past 12 months: Yes If you are a former smoker, when did you quit?: 2 cigar - Alcohol/Substance Use Hx Alcohol Use: Yes History of Substance Use: reports: Cocaine, Marijuana - Social History Usual Living Arrangement: Yes: Alone Do you think of yourself as: Straight/Heterosexual Occupation: on ssi History of Recent Travel: No Other Social History: on ssi,no legal issue Admission ROS S - HPI Chief Complaint: i need help to stop drinking alcohol,cocaine and marijuana Allergies/Adverse Reactions: Allergies Allergy/AdvReac Type Severity Reaction Status Date / Time No Known Drug Allergies Allergy Verified 08/11/17 12:40 History of Present Illness: this 58 years old female with alcohol,crack,marijuana seeking detox ,withdrawal symptom Exam Limitations: No Limitations - Ebola screening Have you traveled outside of the country in the last 21 days: No Have you had contact with anyone from an Ebola affected area: No Have you been sick,other than usual withdrawal symptoms: No Do you have a fever: No - Review of Systems Constitutional: Night Sweats, Changes in sleep, Weakness EENT: reports: Nose Congestion Respiratory: reports: Other (asthma) Cardiac: reports: No Symptoms Reported GI: reports: Nausea, Poor Appetite, Abdominal cramping : reports: No Symptoms Reported Musculoskeletal: reports: Back Pain, Muscle Pain Integumentary: reports: Dryness Neuro: reports: Seizure, Tremors Endocrine: reports: No Symptoms Reported Hematology: reports: No Symptoms Reported Psychiatric: reports: No Sypmtoms Reported, Judgement Intact, Mood/Affect Appropiate, Orientated x3, other (bipolar 1 disorder) Patient History - Patient Medical History Hx Anemia: No Hx Asthma: Yes Hx Chronic Obstructive Pulmonary Disease (COPD): No Hx Cancer: No Hx Cardiac Disorders: No Hx Congestive Heart Failure: No Hx Hypertension: No Hx Hypercholesterolemia: No Hx Pacemaker: No HX Cerebrovascular Accident: No Hx Seizures: Yes (etoh related last in 2015) Hx Dementia: No Hx Diabetes: No Hx Gastrointestinal Disorders: No Hx Liver Disease: No Hx Genitourinary Disorders: No Hx Sexually Transmitted Disorders: No Hx Renal Disease (ESRD): No Hx Thyroid Disease: No Hx Human Immunodeficiency Virus (HIV): No (NEGATVE last 07/28 negative) Hx Hepatitis C: Yes (just completed treated with three pills) Hx Depression: Yes Hx Suicide Attempt: No (no SI a this time) Hx Bipolar Disorder: Yes (on meds, history of hospitalizations at [facility] ) Hx Schizophrenia: No Other Medical History: no suicidal,no homicidal - Patient Surgical History Past Surgical History: Yes Hx Neurologic Surgery: No Hx Cataract Extraction: No Hx Cardiac Surgery: No Hx Lung Surgery: No Hx Breast Surgery: No Hx Breast Biopsy: No Hx Abdominal Surgery: No Hx Appendectomy: No Hx Cholecystectomy: No Hx Genitourinary Surgery: No Hx Section: No Hx Orthopedic Surgery: No Hx Hysterectomy: No Other Surgical History: UMBILICAL HERNIA REPAIR at childhood Anesthesia Reaction: No - PPD History Previous Implant?: Yes Documented Results: Negative w/o proof Implanted On Prior [facility] Admission?: Yes Date: 08/24/16 Results: 0 MM PPD to be Administered?: Yes - Reproductive History Patient is a Female of Child Bearing Age (11 -55 yrs old): Yes Last Menstrual Period: 12/25/17 Patient : No - Smoking Cessation Smoking history: Current every day smoker Have you smoked in the past 12 months: Yes Aproximately how many cigarettes per day: 0 (NOT CURRENTLY;USES PATCH) If you are a former smoker, when did you quit?: 10 years Cigars Per Day: 2 Hx Chewing Tobacco Use: No Initiated information on smoking cessation: Yes 'Breaking Loose' booklet given: 10/27/19 - Substance & Tx. History Hx Alcohol Use: Yes Hx Substance Use: Yes Substance Use Type: Alcohol, Cocaine, Marijuana Hx Substance Use Treatment: Yes ([facility]08/11/17 to -08/12/17 not completed) - Substances abused Alcohol Substance route: Oral Frequency: Daily Amount used: 2 pints of liquor/6 packs of 12 ozs of beer Age of first use: 18 Date of last use: 10/26/19 Cocaine Substance route: Smoking Frequency: Daily Amount used: 50$ Age of first use: 30 Date of last use: 10/26/19 Marijuana/Hashish Substance route: Smoking Frequency: Daily Amount used: 1 joint Age of first use: 17 Date of last use: 10/27/[address] [facility] - Vital Signs Vital Signs: t98.2,p97,bp111/75,r20 - Physical General Appearance: Yes: Moderate Distress, Tremorous, Irritable, Sweating, Anxious HEENTM: Yes: Normal ENT Inspection, Normocephalic, ALLAN, Pharynx Normal Respiratory: Yes: Lungs Clear, Normal Breath Sounds, No Respiratory Distress Neck: Yes: Within Normal Limits, Supple, Trachea in good position Breast: Yes: Breast Exam Deferred Cardiology: Yes: Within Normal Limits, Regular Rhythm, Regular Rate, S1, S2 Abdominal: Yes: Within Normal Limits, Normal Bowel Sounds, Non Tender, Soft Genitourinary: Yes: Within Normal Limits Back: Yes: Muscle Spasm Extremities: Yes: Tremors Neurological: Yes: director surgical II-XII NML intact, Fully Oriented, Alert, Motor Strength 5/5 Integumentary: Yes: Dry Lymphatic: Yes: Within Normal Limits - Diagnostic (1) Alcohol dependence with uncomplicated withdrawal Current Visit: No Status: Acute (2) Hepatitis C Current Visit: No Status: Acute (3) Asthma Current Visit: No Status: Chronic Qualifiers: Asthma severity: mild Asthma persistence: intermittent Asthma complication type: uncomplicated Qualified Code(s): J45.20 - Mild intermittent asthma, uncomplicated (4) Bipolar disorder Current Visit: No Status: Chronic (5) Cocaine dependence Current Visit: No Status: Chronic (6) GERD (gastroesophageal reflux disease) Current Visit: No Status: Chronic Qualifiers: Esophagitis presence: without esophagitis Qualified Code(s): K21.9 - Gastro-esophageal reflux disease without esophagitis Cleared for Admission [facility] - Detox or Rehab S Level of Care: Medically Managed Detox Regimen/Protocol: Librium Inpatient Rehab Admission - Rehab Decision to Admit Inpatient rehab admission?: No
[2019-10-27 16:49] VITALS: BMI 33.7
[2019-10-27] MEDS ORDERED: NICOTINE POLACRILEX 2 MG GUM BUC PRN (17:13)
[2019-10-27] MEDS ORDERED: MAG HYDROX/AL HYDROX/SIMETH 30 ML UNIT-DOSE CUP PO PRN (17:13)
[2019-10-27] MEDS ORDERED: MAGNESIUM CITRATE 300 ML BOTTLE PO PRN (17:13)
[2019-10-27] MEDS ORDERED: ACETAMINOPHEN 325 MG TABLET (FP) PO PRN (17:13)
[2019-10-27] MEDS ORDERED: MENTHOL/PHENOL 1 EACH UD MM PRN (17:13)
[2019-10-27] MEDS ORDERED: BISMUTH SUBSALICYLATE 524 MG/30 ML UD PO PRN (17:13)
[2019-10-27] MEDS: ONDANSETRON *ODT* 4 MG TABLET SL ONE ×2 (17:56→18:11)
[2019-10-27] MEDS: chlordiazePOXIDE HCL 25 MG CAPSULE PO PRN (17:57)
[2019-10-27] MEDS: IBUPROFEN 400 MG TABLET (FP) PO PRN (18:05)
[2019-10-27] MEDS: ALBUTEROL SO4 HFA INHALER IH PRN (18:06)
[2019-10-27] MEDS: METHOCARBAMOL 500 MG TABLET PO PRN (18:06)
[2019-10-27] MEDS: hydrOXYzine PAMOATE 25 MG CAPSULE (FP) PO SCH ×2 (18:11→22:26)
[2019-10-27] MEDS: chlordiazePOXIDE HCL 25 MG CAPSULE PO SCH (22:26)
[2019-10-27] MEDS: MELATONIN 5 MG TABLETS PO SCH (22:26)
[2019-10-27] MEDS: THIAMINE HCL 100 MG TABLET (FP) PO SCH (22:26)
[2019-10-27] MEDS: ACETAMINOPHEN 325 MG TABLET (FP) PO PRN (22:27)
[2019-10-28] MEDS: hydrOXYzine PAMOATE 25 MG CAPSULE (FP) PO SCH ×5 (05:58→22:10)
[2019-10-28] MEDS: chlordiazePOXIDE HCL 25 MG CAPSULE PO SCH ×4 (05:58→22:11)
[2019-10-28] MEDS: ALBUTEROL SO4 HFA INHALER IH PRN ×3 (06:02→17:35)
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
[2019-10-28 10:15] LABS: HEMOGLOBIN 13.4 GM/dL (10.7-15.3); MCH 23.6 pg (25.7-33.7); MCHC 31.1 g/dl (32.0-36.0); MEAN CELL VOLUME 75.9 fl (80-96); MEAN PLT VOLUME 8.2 fl (7.5-11.1); PLATELET COUNT 284 K/MM3 (134-434); RBC 5.67 M/mm3 (3.60-5.2); RDW 16.3 % (11.6-15.6); WHITE BLOOD COUNT 5.6 K/mm3 (4.0-10.0)
[2019-10-28] MEDS: NICOTINE 21 MG/24 HOURS TOPICAL PATCH TD SCH (10:30)
[2019-10-28] MEDS: PRENATAL VITAMINS W/ FOLIC ACID TABLET (FP) PO SCH (10:30)
[2019-10-28 10:34] LABS: ALBUMIN 3.4 g/dl (3.4-5.0); BILIRUBIN,TOTAL 0.3 mg/dL (0.2-1); CALCIUM 9.2 mg/dL (8.5-10.1); CREATININE 0.7 mg/dL (0.55-1.3); TOT PROT 6.8 g/dl (6.4-8.2)
[2019-10-28] MEDS: ACETAMINOPHEN 325 MG TABLET (FP) PO PRN (10:36)
[2019-10-28] MEDS: FAMOTIDINE 20 MG TABLET PO SCH (12:13)
--- NOTE | 2019-10-28 14:17 | PN ---
[facility] CIWA - CIWA Score Nausea/Vomitin-Mild Nausea/No Vomiting Muscle Tremors: 3 Anxiety: 2 Agitation: 2 Paroxysmal Sweats: No Perspiration Orientation: 0-Oriented Tacttile Disturbances: 1-Very Mild Itch/Numbness Auditory Disturbances: 0-None Visual Disturbances: 0-None Headache: 1-Very Mild CIWA-Ar Total Score: 10 S Progress Note (SOAP) Subjective: alert,irritable,anxious,interrupted sleep,tremor,aching pain Objective: 10/28/19 14:15 Vital Signs Temperature 97.5 F L 10/28/19 12:58 Pulse Rate 80 10/28/19 12:58 Respiratory Rate 20 10/28/19 12:58 Blood Pressure 142/82 10/28/19 12:58 O2 Sat by Pulse Oximetry (%) 99 10/28/19 12:58 Laboratory Last Values WBC 5.6 K/mm3 (4.0-10.0) 10/28/19 08:15 RBC 5.67 M/mm3 (3.60-5.2) H 10/28/19 08:15 Hgb 13.4 GM/dL (10.7-15.3) 10/28/19 08:15 Hct 43.0 % (32.4-45.2) 10/28/19 08:15 MCV 75.9 fl (80-96) L 10/28/19 08:15 MCH 23.6 pg (25.7-33.7) L 10/28/19 08:15 MCHC 31.1 g/dl (32.0-36.0) L 10/28/19 08:15 RDW 16.3 % (11.6-15.6) H 10/28/19 08:15 Plt Count 284 K/MM3 (134-434) 10/28/19 08:15 MPV 8.2 fl (7.5-11.1) 10/28/19 08:15 Sodium 141 mmol/L (136-145) 10/28/19 08:15 Potassium 4.0 mmol/L (3.5-5.1) 10/28/19 08:15 Chloride 107 mmol/L (98-107) 10/28/19 08:15 Carbon Dioxide 31 mmol/L (21-32) 10/28/19 08:15 Anion Gap 4 MMOL/L (8-16) L 10/28/19 08:15 BUN 13.0 mg/dL (7-18) 10/28/19 08:15 Creatinine 0.7 mg/dL (0.55-1.3) 10/28/19 08:15 Est GFR (CKD-EPI)AfAm 112.26 10/28/19 08:15 Est GFR (CKD-EPI)NonAf 96.86 10/28/19 08:15 Random Glucose 80 mg/dL (74-106) 10/28/19 08:15 Calcium 9.2 mg/dL (8.5-10.1) 10/28/19 08:15 Total Bilirubin 0.3 mg/dL (0.2-1) 10/28/19 08:15 AST 14 U/L (15-37) L 10/28/19 08:15 ALT 15 U/L (13-61) 10/28/19 08:15 Alkaline Phosphatase 97 U/L (45-117) 10/28/19 08:15 Total Protein 6.8 g/dl (6.4-8.2) 10/28/19 08:15 Albumin 3.4 g/dl (3.4-5.0) 10/28/19 08:15 POC Urine HCG, Qual Negative 10/27/19 17:13 Syphilis Serology Non-reactive (NONREACTIVE) 10/28/19 08:15 Assessment: 10/28/19 14:16 withdrawal symptom Plan: continue detox librium regimen,pepcid 20 mgs po daily for gerd
[2019-10-28] MEDS: chlordiazePOXIDE HCL 25 MG CAPSULE PO PRN (15:11)
[2019-10-28] MEDS: METHOCARBAMOL 500 MG TABLET PO PRN (15:11)
[2019-10-28] MEDS: MAGNESIUM HYDROX 2400MG/30ML ORAL SUSPENSION 30 ML CUP PO PRN (16:37)
[2019-10-28] MEDS: THIAMINE HCL 100 MG TABLET (FP) PO SCH (22:10)
[2019-10-28] MEDS: MELATONIN 5 MG TABLETS PO SCH (22:11)
[2019-10-28] MEDS: traZODone HCL 50 MG TABLET (FP) PO SCH (23:00)
[2019-10-29] MEDS: hydrOXYzine PAMOATE 25 MG CAPSULE (FP) PO SCH (06:06)
[2019-10-29] MEDS: ACETAMINOPHEN 325 MG TABLET (FP) PO PRN (06:06)
[2019-10-29] MEDS: chlordiazePOXIDE HCL 25 MG CAPSULE PO SCH ×4 (06:06→22:22)
[2019-10-29] MEDS: ALBUTEROL SO4 HFA INHALER IH PRN ×4 (06:09→22:27)
[2019-10-29] MEDS: METHOCARBAMOL 500 MG TABLET PO PRN ×2 (06:55→17:45)
[2019-10-29] MEDS: IBUPROFEN 400 MG TABLET (FP) PO PRN (09:21)
--- NOTE | 2019-10-29 10:45 | PN ---
[facility] CIWA - CIWA Score Nausea/Vomitin-No Nausea/No Vomiting Muscle Tremors: 2 Anxiety: 1-Mildly Anxious Agitation: 2 Paroxysmal Sweats: 2 Orientation: 0-Oriented Tacttile Disturbances: 0-None Auditory Disturbances: 0-None Visual Disturbances: 0-None Headache: 0-None Present CIWA-Ar Total Score: 7 S Progress Note (SOAP) Subjective: body aches hips are achy sweats interrupted sleep Objective: 10/29/19 10:44 Vital Signs Temperature 98.8 F 10/29/19 09:09 Pulse Rate 82 10/29/19 09:09 Respiratory Rate 10/29/19 09:09 Blood Pressure 146/93 10/29/19 09:09 O2 Sat by Pulse Oximetry (%) 95 10/29/19 09:09 Laboratory Tests 10/27/19 10/28/19 10/28/19 17:13 08:15 08:15 WBC RBC Hgb Hct MCV MCH MCHC RDW Plt Count MPV Sodium Potassium Chloride Carbon Dioxide Anion Gap BUN Creatinine Est GFR (CKD-EPI)AfAm Est GFR (CKD-EPI)NonAf Random Glucose Calcium Total Bilirubin AST ALT Alkaline Phosphatase Total Protein Albumin POC Urine HCG, Qual Negative Syphilis Serology Non-reactive HIV Ag/Ab Combo Qual Negative 10/28/19 10/28/19 08:15 08:15 WBC 5.6 RBC 5.67 H Hgb 13.4 Hct 43.0 MCV 75.9 L MCH 23.6 L MCHC 31.1 L RDW 16.3 H Plt Count 284 MPV 8.2 Sodium 141 Potassium 4.0 Chloride 107 Carbon Dioxide 31 Anion Gap 4 L BUN 13.0 Creatinine 0.7 Est GFR (CKD-EPI)AfAm 112.26 Est GFR (CKD-EPI)NonAf 96.86 Random Glucose 80 Calcium 9.2 Total Bilirubin 0.3 AST 14 L ALT 15 Alkaline Phosphatase 97 Total Protein 6.8 Albumin 3.4 POC Urine HCG, Qual Syphilis Serology HIV Ag/Ab Combo Qual labs noted aaox3 ambulating no acute distress Assessment: 10/29/19 10:45 withdrawals Plan: continue detox increase fluids motrin increased to 600mg prn analgesic balm ordered
[2019-10-29] MEDS: NICOTINE 21 MG/24 HOURS TOPICAL PATCH TD SCH (10:55)
[2019-10-29] MEDS: PRENATAL VITAMINS W/ FOLIC ACID TABLET (FP) PO SCH (10:55)
[2019-10-29] MEDS: FAMOTIDINE 20 MG TABLET PO SCH (10:55)
[2019-10-29] MEDS: METHYL SALICYLATE/MENTHOL OINT 30 GM TUBE TP SCH ×2 (14:00→22:21)
[2019-10-29 15:04] LABS: URINE APPEARANCE CLEAR; URINE BILIRUBIN NEGATIVE (NEGATIVE); URINE COLOR YELLOW; URINE GLUCOSE (UA) NEGATIVE (NEGATIVE); URINE KETONE NEGATIVE (NEGATIVE); URINE LEUK ESTERASE NEGATIVE (NEGATIVE); URINE NITRITE NEGATIVE (NEGATIVE); URINE PROTEIN NEGATIVE (NEGATIVE); URINE UROBILINOGEN 0.2 mg/dL (0.2-1.0)
[2019-10-29] MEDS: hydrOXYzine PAMOATE 25 MG CAPSULE (FP) PO PRN (15:24)
[2019-10-29] MEDS: chlordiazePOXIDE HCL 25 MG CAPSULE PO PRN (15:25)
[2019-10-29] MEDS: THIAMINE HCL 100 MG TABLET (FP) PO SCH (22:22)
[2019-10-29] MEDS: MELATONIN 5 MG TABLETS PO SCH (22:22)
[2019-10-29] MEDS: traZODone HCL 50 MG TABLET (FP) PO SCH (23:00)
[2019-10-30] MEDS ORDERED: chlordiazePOXIDE HCL 10 MG CAPSULE PO PRN
[2019-10-30] MEDS: chlordiazePOXIDE HCL 10 MG CAPSULE PO SCH ×4 (06:24→22:17)
[2019-10-30] MEDS: ALBUTEROL SO4 HFA INHALER IH PRN ×2 (06:24→11:41)
[2019-10-30] MEDS: METHOCARBAMOL 500 MG TABLET PO PRN ×2 (07:43→17:28)
[2019-10-30] MEDS: NICOTINE 21 MG/24 HOURS TOPICAL PATCH TD SCH (10:19)
[2019-10-30] MEDS: PRENATAL VITAMINS W/ FOLIC ACID TABLET (FP) PO SCH (10:20)
[2019-10-30] MEDS: METHYL SALICYLATE/MENTHOL OINT 30 GM TUBE TP SCH ×2 (10:20→21:11)
[2019-10-30] MEDS: FAMOTIDINE 20 MG TABLET PO SCH (10:20)
[2019-10-30] MEDS: IBUPROFEN 600 MG TABLET (FP) PO PRN ×2 (10:29→23:36)
[2019-10-30] MEDS ORDERED: HYDROCORTISONE 1% TOPICAL CREAM 30 GM TUBE TP ONE (11:04)
--- NOTE | 2019-10-30 11:12 | PN ---
S CIWA - CIWA Score Nausea/Vomitin-No Nausea/No Vomiting Muscle Tremors: 2 Anxiety: 1-Mildly Anxious Agitation: 1-Slight > Activity Paroxysmal Sweats: No Perspiration Orientation: 0-Oriented Tacttile Disturbances: 0-None Auditory Disturbances: 0-None Visual Disturbances: 0-None Headache: 0-None Present CIWA-Ar Total Score: 4 BHS Progress Note (SOAP) Subjective: feeling better little anxiety Objective: 10/30/19 11:11 Vital Signs Temperature 97.1 F L 10/30/19 08:45 Pulse Rate 89 10/30/19 08:45 Respiratory Rate 19 10/30/19 08:45 Blood Pressure 140/80 10/30/19 08:45 O2 Sat by Pulse Oximetry (%) 98 10/30/19 05:56 aaox3 ambulating no acute distress Assessment: 10/30/19 11:12 withdrawals Plan: continue detox increase fluids
--- NOTE | 2019-10-30 11:15 | PN ---
S Progress Note Note: pt acknowledged that her PPD site was itchy and raised. Assess site left forearm and noted that there is a raised, leigha circular area to PPD injection site. It appears to be >5mm. Pt states she was never diagnosed with TB in the past. hydrocortisone cream 1% x one ordered chest x-ray ordered for today. will reassess site and review chest x-ray.
[2019-10-30] MEDS: MAGNESIUM HYDROX 2400MG/30ML ORAL SUSPENSION 30 ML CUP PO PRN (12:40)
[2019-10-30] MEDS: THIAMINE HCL 100 MG TABLET (FP) PO SCH (21:08)
[2019-10-30] MEDS: MELATONIN 5 MG TABLETS PO SCH (21:08)
[2019-10-30] MEDS: hydrOXYzine PAMOATE 25 MG CAPSULE (FP) PO PRN (21:08)
[2019-10-30] MEDS: traZODone HCL 50 MG TABLET (FP) PO SCH (23:00)
[2019-10-31] MEDS ORDERED: chlordiazePOXIDE HCL 10 MG CAPSULE PO SCH (05:00)
[2019-10-31 06:43] VITALS: BP 141/83; PULSE 67; TEMP 97.2
--- NOTE | 2019-10-31 09:14 | DS ---
[facility] Detox Discharge Summary Admission Date: 10/27/19 Discharge Date: 10/31/19 - History Present History: Alcohol Dependence, Cannabis Dependence, Cocaine Dependence - Physical Exam Results Vital Signs: Vital Signs Temperature 97.2 F L 10/31/19 06:10 Pulse Rate 67 10/31/19 06:10 Respiratory Rate 10/31/19 06:10 Blood Pressure 141/83 10/31/19 06:10 O2 Sat by Pulse Oximetry (%) 98 10/31/19 06:10 Pertinent Admission Physical Exam Findings: Vital Signs Temperature 97.2 F L 10/31/19 06:10 Pulse Rate 67 10/31/19 06:10 Respiratory Rate 10/31/19 06:10 Blood Pressure 141/83 10/31/19 06:10 O2 Sat by Pulse Oximetry (%) 98 10/31/19 06:10 Laboratory Tests 10/27/19 10/27/19 10/28/19 17:13 23:49 08:15 WBC RBC Hgb Hct MCV MCH MCHC RDW Plt Count MPV Sodium Potassium Chloride Carbon Dioxide Anion Gap BUN Creatinine Est GFR (CKD-EPI)AfAm Est GFR (CKD-EPI)NonAf Random Glucose Calcium Total Bilirubin AST ALT Alkaline Phosphatase Total Protein Albumin Urine Color Urine Appearance Urine pH Ur Specific [place] Urine Protein Urine Glucose (UA) Urine Ketones Urine Blood Urine Nitrite Urine Bilirubin Urine Urobilinogen Ur Leukocyte Esterase POC Urine HCG, Qual Negative Syphilis Serology COVID-19 ([facility]) Not detected HIV Ag/Ab Combo Qual Negative 10/28/19 10/28/19 10/28/19 08:15 08:15 08:15 WBC 5.6 RBC 5.67 H Hgb 13.4 Hct 43.0 MCV 75.9 L MCH 23.6 L MCHC 31.1 L RDW 16.3 H Plt Count 284 MPV 8.2 Sodium 141 Potassium 4.0 Chloride 107 Carbon Dioxide 31 Anion Gap 4 L BUN 13.0 Creatinine 0.7 Est GFR (CKD-EPI)AfAm 112.26 Est GFR (CKD-EPI)NonAf 96.86 Random Glucose 80 Calcium 9.2 Total Bilirubin 0.3 AST 14 L ALT 15 Alkaline Phosphatase 97 Total Protein 6.8 Albumin 3.4 Urine Color Urine Appearance Urine pH Ur Specific [place] Urine Protein Urine Glucose (UA) Urine Ketones Urine Blood Urine Nitrite Urine Bilirubin Urine Urobilinogen Ur Leukocyte Esterase POC Urine HCG, Qual Syphilis Serology Non-reactive COVID-19 ([facility]) HIV Ag/Ab Combo Qual 10/29/19 10:30 WBC RBC Hgb Hct MCV MCH MCHC RDW Plt Count MPV Sodium Potassium Chloride Carbon Dioxide Anion Gap BUN Creatinine Est GFR (CKD-EPI)AfAm Est GFR (CKD-EPI)NonAf Random Glucose Calcium Total Bilirubin AST ALT Alkaline Phosphatase Total Protein Albumin Urine Color Yellow Urine Appearance Clear Urine pH 5.0 Ur Specific [place] 1.014 Urine Protein Negative Urine Glucose (UA) Negative Urine Ketones Negative Urine Blood Negative Urine Nitrite Negative Urine Bilirubin Negative Urine Urobilinogen 0.2 Ur Leukocyte Esterase Negative POC Urine HCG, Qual Syphilis Serology COVID-19 ([facility]) HIV Ag/Ab Combo Qual labs noted aaox3 ambulating no acute distress lungs CTA - Treatment Hospital Course: Detox Protocol Followed, Detoxed Safely, Responded well, Discharged Condition Good, Rehab Referral Accepted - Medication Discharge Medications: Ambulatory Orders traZODone HCL [Desyrel -] 50 mg PO HS #30 tablet 05/29/14 Quetiapine Fumarate [Seroquel -] 50 mg PO HS 08/22/16 Albuterol Sulfate Inhaler - [Ventolin HFA Inhaler -] 2 inh PO Q4H PRN #1 inhaler 03/15/17 clonazePAM [Klonopin -] 0.5 mg PO BID 08/11/17 - Diagnosis (1) Substance-induced anxiety disorder Current Visit: Yes Status: Acute (2) Substance-induced sleep disorder Current Visit: Yes Status: Acute (3) Bipolar disorder Current Visit: Yes Status: Chronic (4) Nicotine dependence Current Visit: Yes Status: Chronic Qualifiers: Nicotine product type: cigarettes Substance use status: uncomplicated Qualified Code(s): F17.210 - Nicotine dependence, cigarettes, uncomplicated (5) Alcohol dependence with uncomplicated withdrawal Current Visit: Yes Status: Chronic (6) Cannabis dependence Current Visit: Yes Status: Chronic (7) Cocaine dependence Current Visit: Yes Status: Chronic (8) Drug-induced mood disorder Current Visit: No Status: Acute (9) Insomnia Current Visit: No Status: Acute (10) Sedative, hypnotic or anxiolytic dependence with withdrawal, uncomplicated Current Visit: No Status: Acute (11) Asthma Current Visit: Yes Status: Chronic Qualifiers: Asthma severity: mild Asthma persistence: intermittent Asthma complication type: uncomplicated Qualified Code(s): J45.20 - Mild intermittent asthma, uncomplicated (12) Bipolar disorder Current Visit: No Status: Chronic (13) GERD (gastroesophageal reflux disease) Current Visit: Yes Status: Chronic Qualifiers: Esophagitis presence: without esophagitis Qualified Code(s): K21.9 - Gastro-esophageal reflux disease without esophagitis (14) Hepatitis C Current Visit: Yes Status: Chronic (15) Drug withdrawal seizure Current Visit: No Status: Resolved Qualifiers: Complication of substance-induced condition: uncomplicated Qualified Code(s): F19.230 - Other psychoactive substance dependence with withdrawal, uncomplicated - AMA Did Patient Leave Against Medical Advice: No
[2019-11-01] MEDS ORDERED: chlordiazePOXIDE HCL 10 MG CAPSULE PO ONE (05:00)
== END 2019-10-31 09:25 | disposition home or self-care (01) | DRG 774 ==
LOC: YASAS 13:10 → Y6N 17:01
PROVIDERS: ADMIT Allergy & Immunology; ATTEND Allergy & Immunology
PROC: HZ2ZZZZ Detoxification Services for Substance Abuse Treatment (ICD-10-PCS; principal; 2019-10-27)
DX: F10.230 Alcohol dependence with withdrawal, uncomplicated (principal); F14.20 Cocaine dependence, uncomplicated; F12.20 Cannabis dependence, uncomplicated; F17.290 Nicotine dependence, other tobacco product, uncomplicated; F31.9 Bipolar disorder, unspecified; F19.280 Other psychoactive substance dependence with psychoactive substance-induced anxiety disorder; F19.282 Other psychoactive substance dependence with psychoactive substance-induced sleep disorder; F19.24 Other psychoactive substance dependence with psychoactive substance-induced mood disorder; G47.00 Insomnia, unspecified; J45.20 Mild intermittent asthma, uncomplicated; K21.9 Gastro-esophageal reflux disease without esophagitis; B18.2 Chronic viral hepatitis C; Z86.69 Personal history of other diseases of the nervous system and sense organs; Z91.410 Personal history of adult physical and sexual abuse
CPT/HCPCS: 36415; 71046-TC-FY; 80053; 81003; 81025; 85027; 86780; 87389; Q0162; U0003